=== PATIENT | female | born 1975 | race Caucasian/White ===

== ENCOUNTER 2016-11-03 20:36 | Inpatient (IN) | payer MEDICARE, OTHER ==
[2016-11-03] MEDS ORDERED: IPRATROPIUM-ALBUTEROL 3 ML NEB INHALATION STA (20:56)
[2016-11-03] MEDS ORDERED: SODIUM CHLORIDE 0.9% 1,000 ML IV STA (21:05)
[2016-11-03] MEDS: SODIUM CHLORIDE 0.9% 2,000 ML IV ONE (21:08)
--- NOTE | 2016-11-03 21:15 | ED ---
General Adult HPI - General Chief complaint: Chest Pain Stated complaint: vomiting x 5 days/Chest pain Time Seen by Provider: 11/03/16 20:50 Source: patient, family, RN notes reviewed Mode of arrival: wheelchair Limitations: no limitations - History of Present Illness Initial comments: This is a 41-year-old female who presents with complaints of nausea vomiting and diarrhea for the past 5 days. She states she's vomited multiple times with has not been able keep any food or fluids down. Additionally she's had sharp chest pain anteriorly for past 2 days she states that she radiated from her upper right thigh up and right flank and into her mid chest. It is severe at times. She also had a cough with yellow phlegm fevers chills and sweats. She does have a history of asthma she also is a smoker. She has a history of COPD and does use inhalers. She states she has been feeling lightheaded dizzy and generally weak. - Related Data Home Medications Medication Instructions Recorded Confirmed ALPRAZolam [Xanax] 1 mg PO DAILY PRN 11/03/16 11/03/16 Albuterol Inhaler [Ventolin Hfa 1 - 2 puff INHALATION RT-QID PRN 11/03/16 Inhaler] Morphine Sulfate Ir [Msir] 30 mg PO QAM 11/03/16 11/03/16 QUEtiapine FUMARATE [SEROquel] 300 mg PO HS 11/03/16 11/03/16 Allergies Allergy/AdvReac Type Severity Reaction Status Date / Time imipramine [From Tofranil] Allergy Rash/Hives Verified 11/03/16 20:43 Review of Systems ROS Statement: Those systems with pertinent positive or pertinent negative responses have been documented in the HPI. ROS Other: All systems not noted in ROS Statement are negative. Past Medical History Past Medical History: No Reported History History of Any Multi-Drug Resistant Organisms: MRSA Date of last positivie culture/infection: 03/2016 MDRO Source:: posterior right knee Past Surgical History: Orthopedic Surgery Additional Past Surgical History / Comment(s): Right knee surgery Past Psychological History: Depression Smoking Status: Current every day smoker Past Alcohol Use History: None Reported Past Drug Use History: None Reported General Exam - General Exam Comments Initial Comments: This is a well-developed well-nourished awake alert oriented 3 female Limitations: no limitations General appearance: alert, lethargic Head exam: Present: atraumatic, normocephalic, normal inspection Eye exam: Present: normal appearance, PERRL, EOMI. Absent: scleral icterus, conjunctival injection, periorbital swelling ENT exam: Present: mucous membranes dry Neck exam: Present: normal inspection. Absent: tenderness, meningismus, lymphadenopathy Respiratory exam: Present: wheezes, rhonchi, chest wall tenderness, decreased breath sounds. Absent: respiratory distress, rales, stridor Cardiovascular Exam: Present: normal rhythm, tachycardia, normal heart sounds. Absent: systolic murmur, diastolic murmur, rubs, gallop, clicks GI/Abdominal exam: Present: soft, normal bowel sounds. Absent: distended, tenderness, guarding, rebound, rigid Extremities exam: Present: normal inspection, full ROM, normal capillary refill. Absent: tenderness, pedal edema, joint swelling, calf tenderness Back exam: Present: normal inspection Neurological exam: Present: alert, oriented X3, CN II-XII intact Psychiatric exam: Present: normal affect, normal mood Skin exam: Present: warm, dry, intact, normal color. Absent: rash Course Vital Signs 11/03/16 11/03/16 11/03/16 20:39 21:04 21:15 Temperature 98.0 F 101.7 F H Pulse Rate 146 H 135 H Respiratory 22 18 Rate Blood Pressure 82/46 84/48 O2 Sat by Pulse 94 L 99 Oximetry 11/03/16 11/03/16 11/03/16 21:29 21:45 21:50 Temperature 101.7 F H Pulse Rate 116 H 113 H Respiratory 20 Rate Blood Pressure 90/62 O2 Sat by Pulse 97 Oximetry 11/03/16 11/03/16 22:00 22:01 Temperature 101.7 F H Pulse Rate 118 H 119 H Respiratory 22 Rate Blood Pressure 95/63 O2 Sat by Pulse 97 Oximetry - Reevaluation(s) Reevaluation #1: 11/03/16 21:54 Patient is feeling somewhat improved. 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 EKG Findings - EKG Results: EKG: interpreted by TAMI, sinus rhythm (Sinus tachycardia rate of 196407 QRS 70 daily since QTC of 394/[address] configuration inferior and anterolateral leads.) Medical Decision Making - Lab Data Result diagrams: 11/03/16 21:08 11/03/16 21:08 Lab Results 11/03/16 11/03/16 11/03/16 Range/Units 21:08 21:08 21:08 WBC 23.5 H (3.8-10.6) k/uL RBC 4.45 (3.80-5.40) m/uL Hgb 13.7 (11.4-16.0) gm/dL Hct 39.5 (34.0-46.0) % MCV 88.6 (80.0-100.0) fL MCH 30.9 (25.0-35.0) pg MCHC 34.8 (31.0-37.0) g/dL RDW 14.1 (11.5-15.5) % Plt Count 159 (150-450) k/uL Neutrophils % 96 % Lymphocytes % 2 % Monocytes % 1 % Eosinophils % 0 % Basophils % 0 % Neutrophils # 22.5 H (1.3-7.7) k/uL Lymphocytes # 0.4 L (1.0-4.8) k/uL Monocytes # 0.3 (0-1.0) k/uL Eosinophils # 0.1 (0-0.7) k/uL Basophils # 0.0 (0-0.2) k/uL PT (9.0-12.0) sec INR (<1.1) APTT (22.0-30.0) sec D-Dimer (<0.60) mg/L FEU Sodium 132 L (137-145) mmol/L Potassium 3.0 L* (3.5-5.1) mmol/L Chloride 101 (98-107) mmol/L Carbon Dioxide 18 L (22-30) mmol/L Anion Gap 13 mmol/L BUN 26 H (7-17) mg/dL Creatinine 1.60 H (0.52-1.04) mg/dL Est GFR (MDRD) Af Amer 43 (>60 ml/min/1.73 sqM) Est GFR (MDRD) Non-Af 35 (>60 ml/min/1.73 sqM) Glucose 176 H (74-99) mg/dL Plasma Lactic Acid Ananth 1.4 (0.7-2.0) mmol/L Calcium 8.2 L (8.4-10.2) mg/dL Magnesium 1.5 L (1.6-2.3) mg/dL Total Bilirubin 1.1 (0.2-1.3) mg/dL AST 32 (14-36) U/L ALT 43 (9-52) U/L Alkaline Phosphatase 136 H (38-126) U/L Total Protein 6.6 (6.3-8.2) g/dL Albumin 3.2 L (3.5-5.0) g/dL 11/03/16 Range/Units 21:08 WBC (3.8-10.6) k/uL RBC (3.80-5.40) m/uL Hgb (11.4-16.0) gm/dL Hct (34.0-46.0) % MCV (80.0-100.0) fL MCH (25.0-35.0) pg MCHC (31.0-37.0) g/dL RDW (11.5-15.5) % Plt Count (150-450) k/uL Neutrophils % % Lymphocytes % % Monocytes % % Eosinophils % % Basophils % % Neutrophils # (1.3-7.7) k/uL Lymphocytes # (1.0-4.8) k/uL Monocytes # (0-1.0) k/uL Eosinophils # (0-0.7) k/uL Basophils # (0-0.2) k/uL PT 11.8 (9.0-12.0) sec INR 1.2 (<1.1) APTT 30.3 H (22.0-30.0) sec D-Dimer 5.31 H (<0.60) mg/L FEU Sodium (137-145) mmol/L Potassium (3.5-5.1) mmol/L Chloride (98-107) mmol/L Carbon Dioxide (22-30) mmol/L Anion Gap mmol/L BUN (7-17) mg/dL Creatinine (0.52-1.04) mg/dL Est GFR (MDRD) Af Amer (>60 ml/min/1.73 sqM) Est GFR (MDRD) Non-Af (>60 ml/min/1.73 sqM) Glucose (74-99) mg/dL Plasma Lactic Acid Ananth (0.7-2.0) mmol/L Calcium (8.4-10.2) mg/dL Magnesium (1.6-2.3) mg/dL Total Bilirubin (0.2-1.3) mg/dL AST (14-36) U/L ALT (9-52) U/L Alkaline Phosphatase (38-126) U/L Total Protein (6.3-8.2) g/dL Albumin (3.5-5.0) g/dL - Radiology Data Radiology results: report reviewed (X-ray does show evidence of a left upper lobe infiltrate), image reviewed Critical Care Time Critical Care Time: Yes Critical Care Time: 33 minutes critical care time which includes initial presentation with history physical labs x-rays reevaluation patient several occasions. Discussion with the patient family regarding findings. Admission orders documentation of the above also discussed with the admitting physician. Disposition Clinical Impression: Left upper lobe pneumonia, COPD exacerbation, Febrile illness, acute, Renal insufficiency, Hypokalemia, Hypomagnesemia, Atypical chest pain Disposition: ADMITTED IP TO THIS [facility] Condition: Stable Referrals: Jamar Kemp DO [Primary Care Provider] - 1-2 days
[2016-11-03 21:24] LABS: Basophils % (A) 0 %; CH 31.1; CHCM 35.2; Eosinophils # (A) 0.1 k/uL (0-0.7); Eosinophils % (A) 0 %; HCT 39.5 % (34.0-46.0); HDW 2.78; HGB 13.7 gm/dL (11.4-16.0); Luc % (Auto) 1; Lymphocytes # (A) 0.4 k/uL (1.0-4.8); Lymphocytes % (A) 2 %; MCH 30.9 pg (25.0-35.0); MCHC 34.8 g/dL (31.0-37.0); MCV 88.6 fL (80.0-100.0); Mean Platelet Volume 8.5; Monocytes # (A) 0.3 k/uL (0-1.0); Monocytes % (A) 1 %; Neutrophils # (A) 22.5 k/uL (1.3-7.7); Neutrophils % (A) 96 %; RBC 4.45 m/uL (3.80-5.40); RDW 14.1 % (11.5-15.5); WBC 23.5 k/uL (3.8-10.6); WBC (Perox) 24.72
[2016-11-03 21:27] LABS: Calcium 8.2 mg/dL (8.4-10.2); Magnesium 1.5 mg/dL (1.6-2.3); Total Bilirubin 1.1 mg/dL (0.2-1.3); Total Protein 6.6 g/dL (6.3-8.2)
[2016-11-03] MEDS ORDERED: MAGNESIUM SULFATE-D5W PMX 1 GM in DEXTROSE/WATER 1 100ML.BAG IVPB ONE (21:31)
[2016-11-03] MEDS ORDERED: ACETAMINOPHEN TAB 500 MG TAB PO STA (21:32)
[2016-11-03 21:37] LABS: Creatine Kinase 209 U/L (30-135)
[2016-11-03 21:38] LABS: INR 1.2 (<1.1); Partial Thromboplastin Time 30.3 sec (22.0-30.0); Prothrombin Time 11.8 sec (9.0-12.0)
--- NOTE | 2016-11-03 21:39 | XR ---
EXAMINATION TYPE: XR chest 2V DATE OF EXAM: 11/03/2016 COMPARISON: 09/17/2013 HISTORY: Chest pain TECHNIQUE: Frontal and lateral views of the chest are obtained. FINDINGS: There is some nodular infiltrate in the anterior segment of the left upper lobe. The other lung garcia are clear. Heart and mediastinum are normal. There is no pleural effusion. Pulmonary vas cularity is normal. IMPRESSION: There is a 3 cm nodular left upper lobe infiltrate that is new compared to old exam and follow-up is recommended to show clearing.
[2016-11-03 21:50] LABS: Creatine Kinase MB 0.7 ng/mL (0.0-2.4); Troponin I <0.012 ng/mL (0.000-0.034)
[2016-11-03] MEDS ORDERED: methylPREDNISolone SOD SUCCI 125 MG/2 ML VIAL IV STA (21:58)
[2016-11-03] MEDS ORDERED: AZITHROMYCIN 500 MG in SODIUM CHLORIDE 0.9% 250 ML IVPB STA (21:59)
[2016-11-03] MEDS ORDERED: PNEUMONIA PROTOCOL UTILIZED 1 EACH MISC PO PRN (21:59)
[2016-11-03] MEDS: POTASSIUM CHLORIDE 20 MEQ, LIDOCAINE 2% INJ 20 MG in SODIUM CHLORIDE 0.9% 100 ML IVPB SCH (21:59)
[2016-11-03] MEDS ORDERED: HEPARIN SODIUM,PORCINE/D5W PMX 25,000 UNIT in DEXTROSE/WATER 1 500ML.BAG IV SCH (22:10)
[2016-11-03] MEDS ORDERED: HEPARIN SODIUM,PORCINE 5,000 UNIT/ML 1 ML VIAL IV PRN (22:10)
[2016-11-04] MEDS: methylPREDNISolone SOD SUCCI 125 MG/2 ML VIAL IV SCH ×3 (00:30→11:37)
--- NOTE | 2016-11-04 02:58 | US ---
EXAM: US Duplex Right Lower Extremity Veins CLINICAL HISTORY: Reason: Pain TECHNIQUE: Real-time ultrasound scan of the veins of the right lower extremity with color Doppler flow, spectral waveform analysis and compression. COMPARISON: No relevant prior studies available. FINDINGS: Deep veins: Unremarkable. No DVT in the visualized common femoral, femoral, proximal deep femoral or popliteal veins. The veins are compressible with normal color flow and augmentation. Superficial veins: Unremarkable. No thrombus in the visualized great saphenous vein. Soft tissues: No acute findings. No popliteal cyst. IMPRESSION: Normal right lower extremity duplex venous ultrasound.
[2016-11-04] MEDS: IPRATROPIUM-ALBUTEROL 3 ML NEB INHALATION SCH ×6 (03:47→20:04)
[2016-11-04 06:08] LABS: Basophils % (A) 0 %; CHCM 34.1; Eosinophils % (A) 0 %; HCT 37.6 % (34.0-46.0); HDW 2.81; HGB 13.1 gm/dL (11.4-16.0); Luc # (Auto) 0.17; Luc % (Auto) 1; Lymphocytes # (A) 0.5 k/uL (1.0-4.8); Lymphocytes % (A) 2 %; MCH 31.7 pg (25.0-35.0); MCHC 34.8 g/dL (31.0-37.0); MCV 91.1 fL (80.0-100.0); Mean Platelet Volume 8.4; Monocytes # (A) 0.3 k/uL (0-1.0); Monocytes % (A) 2 %; Neutrophils # (A) 20.6 k/uL (1.3-7.7); Neutrophils % (A) 95 %; RBC 4.12 m/uL (3.80-5.40); RDW 14.6 % (11.5-15.5); WBC 21.6 k/uL (3.8-10.6); WBC (Perox) 21.37
[2016-11-04] MEDS: SODIUM CHLORIDE 0.9% 1,000 ML IV SCH ×5 (06:39→23:33)
[2016-11-04 06:44] LABS: Appearance,Urine Cloudy (Clear); Bacteria,Urine Rare /hpf; Bilirubin,Urine Negative (Negative); Glucose,Urine (UA) Negative (Negative); Ketones,Urine Negative (Negative); Leukocyte Esterase,Urine Small (Negative); Mucus,Urine Rare /hpf; Nitrite,Urine Positive (Negative); PH, Urine 5.5 (5.0-8.0); Particle Count 7875; Protein,Urine Trace (Negative); RBC,Urine 1 /hpf (0-5); Specific Gravity,Urine 1.006 (1.001-1.035); Squamous Epithelial Cell,Urine 1 /hpf (0-4); UA Billing (MACRO vs. MICRO) MICRO; Urobilinogen,Urine <2.0 mg/dL (<2.0); WBC,Urine 7 /hpf (0-5)
[2016-11-04] MEDS: POTASSIUM CHLORIDE 20 MEQ, LIDOCAINE 2% INJ 20 MG in SODIUM CHLORIDE 0.9% 100 ML IVPB SCH (07:02)
[2016-11-04] MEDS: MORPHINE SULFATE IR 15 MG TABLET PO SCH (08:56)
--- NOTE | 2016-11-04 09:11 | NM ---
EXAMINATION TYPE: NM pul vent and perfuse DATE OF EXAM: 11/04/2016 COMPARISON: Chest x-ray from yesterday. HISTORY: Elevated d-dimer. TECHNIQUE: Utilizing inhalation of 71 mCi Tc 99m DTPA aerosol and intravenous injection of 5.26 mCi of Tc 99m MAA, ventilation and perfusion images are acquired post injection in multiple projections. FINDINGS: Normal radiotracer distribution is noted in the lungs. Some heterogeneity is present. There is no sudha dence of mismatched defects. Perhaps small matching defects are difficult to exclude. IMPRESSION: Low probability for pulmonary embolism
[2016-11-04 09:57] LABS: Anion Gap 11 mmol/L; Blood Urea Nitrogen 20 mg/dL (7-17); Carbon Dioxide 23 mmol/L (22-30); Chloride 106 mmol/L (98-107); Glucose 195 mg/dL (74-99); Non-African American GFR(MDRD) >60 (>60 ml/min/1.73 sqM); Potassium 3.4 mmol/L (3.5-5.1); Sodium 140 mmol/L (137-145)
[2016-11-04] MEDS ORDERED: IV VANCOMYCIN PER PHARMACY 1 EACH MISC MISCELLANE PRN (14:38)
[2016-11-04] MEDS ORDERED: VANCOMYCIN 1,250 MG in SODIUM CHLORIDE 0.9% 250 ML IVPB ONE (15:00)
[2016-11-04] MEDS: methylPREDNISolone SOD SUCCI 40 MG/ML 1 ML VIAL IV SCH ×2 (15:41→23:40)
[2016-11-04] MEDS ORDERED: Potassium Replacement Protocol 1 EACH MISC MISCELLANE PRN (15:52)
[2016-11-04] MEDS: POTASSIUM CHLORIDE ER 20 MEQ TAB.ER PO SCH ×4 (17:05→23:40)
--- NOTE | 2016-11-04 17:34 | P.HPIM ---
History of Present Illness H&P Date: 11/04/16 Chief Complaint: Generalized weakness This is a 40-year-old female with history of bipolar disorder ongoing tobacco use comes in the hospital with the 5 days worth of inability to tolerate any oral intake. Patient states that she has been having diffuse abdominal pain with the nausea vomiting and watery diarrhea Patient has also been having intermittent episodes of chills and fevers over the last 2 days. Patient states that she has been having increasing complaints of shortness of breath with yellowish sputum production with same period of time Patient denies having any recent travel history. No sick contacts reported Patient was having episodes of dizziness prior to admission Patient was seen in the emergency room was noted to have an acute kidney injury UA was concerning for urinary tract infection A chest x-ray that showed a right upper lobe air space disease Today patient states that she is feeling slightly better since admission Review of Systems All systems: negative (Noted in HPI) Past Medical History Past Medical History: No Reported History History of Any Multi-Drug Resistant Organisms: MRSA Date of last positivie culture/infection: 03/2016 (patient states culture done at [facility]) MDRO Source:: posterior right knee Past Surgical History: Orthopedic Surgery Additional Past Surgical History / Comment(s): Right knee surgery TUBES IN EARS D AND C IN 20'S Past Psychological History: Depression Smoking Status: Current every day smoker Medications and Allergies Home Medications Medication Instructions Recorded Confirmed Type ALPRAZolam [Xanax] 1 mg PO DAILY PRN 11/03/16 11/03/16 History Albuterol Inhaler [Ventolin Hfa 1 - 2 puff INHALATION RT-QID PRN 11/03/16 History Inhaler] Morphine Sulfate Ir [Msir] 30 mg PO QAM 11/03/16 11/03/16 History QUEtiapine FUMARATE [SEROquel] 300 mg PO HS 11/03/16 11/03/16 History Allergies Allergy/AdvReac Type Severity Reaction Status Date / Time imipramine [From Tofranil] Allergy Rash/Hives Verified 11/03/16 20:43 Physical Exam Vitals: Vital Signs Temp Pulse Pulse Pulse Resp BP BP 11/04/16 16:09 94 11/04/16 16:00 98.2 F 95 95 18 108/62 11/04/16 15:52 94 11/04/16 12:00 99.5 F 101 H 20 103/60 11/04/16 09:09 102 H 11/04/16 08:52 100 11/04/16 08:00 98.1 F 92 18 109/63 11/04/16 05:10 98 F 81 16 98/56 11/04/16 04:59 81 16 11/04/16 04:45 98 F 86 16 96/56 11/04/16 00:15 99.9 F H 111 H 16 91/55 11/03/16 22:56 100.7 F H 116 H 20 98/56 11/03/16 22:01 101.7 F H 119 H 22 95/63 11/03/16 22:00 118 H 11/03/16 21:59 11/03/16 21:50 113 H 11/03/16 21:45 116 H 20 90/62 11/03/16 21:29 101.7 F H 11/03/16 21:15 101.7 F H 11/03/16 21:04 135 H 18 84/48 11/03/16 20:39 98.0 F 146 H 22 82/46 Pulse Ox 11/04/16 16:09 11/04/16 16:00 95 11/04/16 15:52 95 11/04/16 12:00 95 11/04/16 09:09 11/04/16 08:52 11/04/16 08:00 100 11/04/16 05:10 97 11/04/16 04:59 11/04/16 04:45 97 11/04/16 00:15 96 11/03/16 22:56 94 L 11/03/16 22:01 97 11/03/16 22:00 11/03/16 21:59 97 11/03/16 21:50 11/03/16 21:45 97 11/03/16 21:29 11/03/16 21:15 11/03/16 21:04 99 11/03/16 20:39 94 L Intake and Output 11/04/16 11/04/16 11/04/16 06:59 14:59 22:59 Intake Total 1140 480 240 Output Total 1100 Balance 40 480 240 Intake: Intake, IV Titration 840 Amount Heparin Sodium,Porcine/ 140 D5w Pmx 25,000 unit In Dextrose/Water 1 500ml. bag @ 18 UNITS/KG/HR 21. 22 mls/hr IV .[id number] [facility] Rx#:[id number] Sodium Chloride 0.9% 1, 700 000 ml @ 150 mls/hr IV . Q6H40M [facility] Rx#:[id number] Oral 300 480 240 Output: Urine 1100 Other: Weight 58.9 kg Physical exam Gen. appearance oriented 3 in no distress Neck is supple no JVD Lungs good air entry clear to auscultation no rhonchi or wheezing Heart S1-S2 heard regular rate and rhythm no murmurs appreciated Abdomen is soft nontender no organomegaly bowel sounds are intact Neurologically cranial nerves II-12 grossly intact no focal motor or sensory deficits noted Skin no abnormalities appreciated Results CBC & Chem 7: 11/04/16 05:24 11/04/16 05:24 Labs: Abnormal Lab Results - Last 24 Hours (Table) 11/03/16 11/03/16 11/03/16 Range/Units 21:08 21:08 21:08 WBC 23.5 H (3.8-10.6) k/uL Neutrophils # 22.5 H (1.3-7.7) k/uL Lymphocytes # 0.4 L (1.0-4.8) k/uL APTT 30.3 H (22.0-30.0) sec D-Dimer 5.31 H (<0.60) mg/L FEU Sodium 132 L (137-145) mmol/L Potassium 3.0 L* (3.5-5.1) mmol/L Carbon Dioxide 18 L (22-30) mmol/L BUN 26 H (7-17) mg/dL Creatinine 1.60 H (0.52-1.04) mg/dL Glucose 176 H (74-99) mg/dL Calcium 8.2 L (8.4-10.2) mg/dL Magnesium 1.5 L (1.6-2.3) mg/dL Alkaline Phosphatase 136 H (38-126) U/L Total Creatine Kinase (30-135) U/L Albumin 3.2 L (3.5-5.0) g/dL Urine Appearance (Clear) Urine Protein (Negative) Urine Blood (Negative) Urine Nitrite (Negative) Ur Leukocyte Esterase (Negative) Urine WBC (0-5) /hpf Urine Bacteria (None) /hpf Urine Mucus (None) /hpf 07/09/17 07/10/17 07/10/17 Range/Units 21:08 05:20 05:24 WBC (3.8-10.6) k/uL Neutrophils # (1.3-7.7) k/uL Lymphocytes # (1.0-4.8) k/uL APTT 36.4 H (22.0-30.0) sec D-Dimer (<0.60) mg/L FEU Sodium (137-145) mmol/L Potassium (3.5-5.1) mmol/L Carbon Dioxide (22-30) mmol/L BUN (7-17) mg/dL Creatinine (0.52-1.04) mg/dL Glucose (74-99) mg/dL Calcium (8.4-10.2) mg/dL Magnesium (1.6-2.3) mg/dL Alkaline Phosphatase (38-126) U/L Total Creatine Kinase 209 H (30-135) U/L Albumin (3.5-5.0) g/dL Urine Appearance Cloudy H (Clear) Urine Protein Trace H (Negative) Urine Blood Trace H (Negative) Urine Nitrite Positive H (Negative) Ur Leukocyte Esterase Small H (Negative) Urine WBC 7 H (0-5) /hpf Urine Bacteria Rare H (None) /hpf Urine Mucus Rare H (None) /hpf 11/04/16 11/04/16 11/04/16 Range/Units 05:24 05:24 05:24 WBC 21.6 H (3.8-10.6) k/uL Neutrophils # 20.6 H (1.3-7.7) k/uL Lymphocytes # 0.5 L (1.0-4.8) k/uL APTT (22.0-30.0) sec D-Dimer (<0.60) mg/L FEU Sodium (137-145) mmol/L Potassium 3.4 L (3.5-5.1) mmol/L Carbon Dioxide (22-30) mmol/L BUN 20 H (7-17) mg/dL Creatinine (0.52-1.04) mg/dL Glucose 195 H (74-99) mg/dL Calcium 8.0 L (8.4-10.2) mg/dL Magnesium 2.4 H (1.6-2.3) mg/dL Alkaline Phosphatase (38-126) U/L Total Creatine Kinase (30-135) U/L Albumin (3.5-5.0) g/dL Urine Appearance (Clear) Urine Protein (Negative) Urine Blood (Negative) Urine Nitrite (Negative) Ur Leukocyte Esterase (Negative) Urine WBC (0-5) /hpf Urine Bacteria (None) /hpf Urine Mucus (None) /hpf Microbiology - Last 24 Hours (Table) 11/03/16 21:08 Blood Culture Gram Stain - Preliminary Blood 11/03/16 21:08 Blood Culture - Final Blood 11/04/16 05:20 Urine Culture - Preliminary Urine,Clean Catch Thrombosis Risk Factor Assmnt - Choose All That Apply Any of the Below Risk Factors Present?: No Each Factor Represents 1 point: Age 41-60 years Other Risk Factors: No Other congenital or acquired thrombophilia - If yes, enter type in comment: No Thrombosis Risk Factor Assessment Total Risk Factor Score: 1 Thrombosis Risk Factor Assessment Level: Very Low Risk Assessment and Plan Plan: #1 sepsis likely secondary to community-acquired pneumonia #2 acute kidney injury secondary to dehydration #3 bipolar disorder #4 ongoing tobacco use #5 bacteremia with gram-positive bacteria likely source being a pneumonic process. Plan We'll discontinue IV heparin Patient was noted to have an elevated d-dimer however has a pneumonic process is currently on room air. Titrate down steroid use We'll add vancomycin until cultures and susceptibilities are back We'll obtain a C. diff toxin is negative patient was started on loperamide DVT prophylaxis
[2016-11-04] MEDS: QUEtiapine 100 MG TAB PO SCH (21:15)
[2016-11-04] MEDS: AZITHROMYCIN 500 MG TAB PO SCH (21:15)
[2016-11-04] MEDS: traMADol 50 MG TAB PO PRN (21:15)
[2016-11-04 21:23] LABS: Glucose,Whole Blood 234 mg/dL (75-99)
[2016-11-04] MEDS: INSULIN LISPRO (humaLOG) 300 UNIT/3 ML VIAL SQ SCH (21:24)
[2016-11-04 22:27] LABS: Hemoglobin A1C 5.6 % (4.2-6.1)
[2016-11-05 03:34] LABS: Basophils % (A) 0 %; CHCM 35.3; Eosinophils # (A) 0.1 k/uL (0-0.7); Eosinophils % (A) 0 %; HDW 3.02; HGB 10.7 gm/dL (11.4-16.0); Luc # (Auto) 0.23; Luc % (Auto) 1; Lymphocytes # (A) 0.7 k/uL (1.0-4.8); Lymphocytes % (A) 4 %; MCH 31.3 pg (25.0-35.0); MCHC 35.5 g/dL (31.0-37.0); MCV 88.1 fL (80.0-100.0); Mean Platelet Volume 9.4; Monocytes # (A) 0.4 k/uL (0-1.0); Monocytes % (A) 2 %; Neutrophils # (A) 17.9 k/uL (1.3-7.7); Neutrophils % (A) 93 %; RBC 3.41 m/uL (3.80-5.40); RDW 14.6 % (11.5-15.5); WBC 19.4 k/uL (3.8-10.6); WBC (Perox) 20.27
[2016-11-05 04:17] LABS: ALT 83 U/L (9-52); AST 89 U/L (14-36); Alkaline Phosphatase 126 U/L (38-126); Anion Gap 8 mmol/L; Blood Urea Nitrogen 14 mg/dL (7-17); Calcium 8.3 mg/dL (8.4-10.2); Carbon Dioxide 19 mmol/L (22-30); Chloride 117 mmol/L (98-107); Glucose 138 mg/dL (74-99); Non-African American GFR(MDRD) >60 (>60 ml/min/1.73 sqM); Potassium 4.2 mmol/L (3.5-5.1); Sodium 144 mmol/L (137-145); Total Bilirubin 0.5 mg/dL (0.2-1.3); Total Protein 5.3 g/dL (6.3-8.2)
[2016-11-05] MEDS: SODIUM CHLORIDE 0.9% 1,000 ML IV SCH ×3 (04:57→22:37)
[2016-11-05 06:19] LABS: Glucose,Whole Blood 145 mg/dL (75-99)
[2016-11-05] MEDS: traMADol 50 MG TAB PO PRN ×2 (06:30→14:51)
[2016-11-05] MEDS: INSULIN LISPRO (humaLOG) 300 UNIT/3 ML VIAL SQ SCH ×4 (06:30→21:16)
[2016-11-05] MEDS: IPRATROPIUM-ALBUTEROL 3 ML NEB INHALATION SCH ×4 (06:54→21:46)
[2016-11-05] MEDS ORDERED: VANCOMYCIN 1,000 MG in SODIUM CHLORIDE 0.9% 250 ML IVPB SCH (08:00)
[2016-11-05] MEDS: methylPREDNISolone SOD SUCCI 40 MG/ML 1 ML VIAL IV SCH ×2 (08:37→17:17)
[2016-11-05] MEDS: ENOXAPARIN 40 MG/0.4 ML SYRINGE SQ SCH (08:38)
[2016-11-05] MEDS: MORPHINE SULFATE IR 15 MG TABLET PO SCH (08:42)
--- NOTE | 2016-11-05 08:58 | XR ---
EXAMINATION TYPE: XR chest 1V portable DATE OF EXAM: 11/05/2016 Comparison: 11/03/2016 Clinical History: 40-year-old female pneumonia, MAY Findings: Heart is normal size. Aorta and pulmonary vasculature within normal limits. There is some volume loss at the right base with trace effusion and patchy opacity, new from 11/03/2016. There may be additional patchy infiltrate at the left midlung. Impression: Prominent new atelectasis and infiltrate at the right base with possible trace effusion. Additional i nfiltrate at the left mid lung.
[2016-11-05 12:37] LABS: Glucose,Whole Blood 249 mg/dL (75-99)
--- NOTE | 2016-11-05 15:31 | XR ---
EXAMINATION TYPE: XR Hip Complete RT DATE OF EXAM: 11/05/2016 COMPARISON: NONE HISTORY: 40-year-old female upper leg pain TECHNIQUE: 2 views FINDINGS: No acute fracture, subluxation, or dislocation. Hip joint space appears maintained. There is a 5 mm calcific density above the greater trochanter. Questionable clinical significance. IMPRESSION: 1. No acute osseous abnormality seen. 2. A 5 mm density above the greater trochanter of questionable clinical significance. In the appropri ate clinical setting, calcific tendinitis of the gluteal insertion is possible.
--- NOTE | 2016-11-05 16:28 | P.PN ---
Subjective This is a 40-year-old female with history of bipolar disorder ongoing tobacco use comes in the hospital with the 5 days worth of inability to tolerate any oral intake. Patient states that she has been having diffuse abdominal pain with the nausea vomiting and watery diarrhea Patient has also been having intermittent episodes of chills and fevers over the last 2 days. Patient states that she has been having increasing complaints of shortness of breath with yellowish sputum production with same period of time Patient denies having any recent travel history. No sick contacts reported Patient was having episodes of dizziness prior to admission Patient was seen in the emergency room was noted to have an acute kidney injury UA was concerning for urinary tract infection A chest x-ray that showed a right upper lobe air space disease Today patient states that she is feeling slightly better since admission 11/05/2016 States to have significant tenderness in the right hip radiating to her groin States her cough is significantly better no fevers chills chest pain abdominal pain urinary urgency or frequency or diarrhea is reported Objective - Vital Signs Vital signs: Vital Signs Temp 97.6 F 11/05/16 15:00 Pulse 85 11/05/16 15:00 Resp 20 11/05/16 15:00 BP 93/54 11/05/16 15:00 Pulse Ox 95 11/05/16 15:00 Intake & Output 11/04/16 11/05/16 11/05/16 18:59 06:59 18:59 Intake Total 720 1500 1020 Output Total 200 Balance 720 1500 820 Weight 59.5 kg Intake: IV 1500 Sodium Chloride 0.9% 1, 1500 000 ml @ 150 mls/hr IV . Q6H40M [facility] Rx#:[id number] Oral 720 1020 Output: Urine 200 Other: Voiding Method Toilet Toilet # Voids 1 2 # Bowel Movements 1 - Exam Physical exam Gen. appearance oriented 3 in no distress Neck is supple no JVD Lungs good air entry clear to auscultation no rhonchi or wheezing Heart S1-S2 heard regular rate and rhythm no murmurs appreciated Abdomen is soft nontender no organomegaly bowel sounds are intact Neurologically cranial nerves II-12 grossly intact no focal motor or sensory deficits noted Skin no abnormalities appreciated Musculoskeletal right hip tenderness on palpation anteriorly in the groin range of motion appears to exacerbate tenderness especially with abduction - Labs CBC & Chem 7: 11/05/16 03:14 11/05/16 03:14 Labs: Abnormal Lab Results - Last 24 Hours (Table) 11/04/16 11/04/16 11/05/16 Range/Units 19:58 21:19 03:14 WBC 19.4 H (3.8-10.6) k/uL RBC 3.41 L (3.80-5.40) m/uL Hgb 10.7 L (11.4-16.0) gm/dL Hct 30.0 L (34.0-46.0) % Plt Count 126 L (150-450) k/uL Neutrophils # 17.9 H (1.3-7.7) k/uL Lymphocytes # 0.7 L (1.0-4.8) k/uL Potassium 3.2 L (3.5-5.1) mmol/L Chloride (98-107) mmol/L Carbon Dioxide (22-30) mmol/L Glucose (74-99) mg/dL POC Glucose (mg/dL) 234 H (75-99) mg/dL Calcium (8.4-10.2) mg/dL AST (14-36) U/L ALT (9-52) U/L Total Protein (6.3-8.2) g/dL Albumin (3.5-5.0) g/dL 11/05/16 11/05/16 11/05/16 Range/Units 03:14 06:00 12:21 WBC (3.8-10.6) k/uL RBC (3.80-5.40) m/uL Hgb (11.4-16.0) gm/dL Hct (34.0-46.0) % Plt Count (150-450) k/uL Neutrophils # (1.3-7.7) k/uL Lymphocytes # (1.0-4.8) k/uL Potassium (3.5-5.1) mmol/L Chloride 117 H (98-107) mmol/L Carbon Dioxide 19 L (22-30) mmol/L Glucose 138 H (74-99) mg/dL POC Glucose (mg/dL) 145 H 249 H (75-99) mg/dL Calcium 8.3 L (8.4-10.2) mg/dL AST 89 H (14-36) U/L ALT 83 H (9-52) U/L Total Protein 5.3 L (6.3-8.2) g/dL Albumin 2.4 L (3.5-5.0) g/dL Microbiology - Last 24 Hours (Table) 11/04/16 05:20 Urine Culture - Final Urine,Clean Catch 11/03/16 21:08 Blood Culture Gram Stain - Preliminary Blood Blood Culture - Preliminary Presumptive Staph aureus 11/03/16 21:08 Blood Culture - Final Blood Assessment and Plan Plan: #1 sepsis likely secondary to community-acquired pneumonia #2 acute kidney injury secondary to dehydration #3 bipolar disorder #4 ongoing tobacco use #5 bacteremia with gram-positive bacteria likely source being a pneumonic process. Plan We'll discontinue IV heparin Await final blood cultures Obtain radiologic imaging of the right hip We'll add vancomycin until cultures and susceptibilities are back We'll obtain a C. diff toxin is negative patient was started on loperamide DVT prophylaxis
[2016-11-05] MEDS: KETOROLAC 30 MG/ML 1 ML VIAL IVP SCH (16:37)
[2016-11-05 17:01] LABS: Glucose,Whole Blood 130 mg/dL (75-99)
--- NOTE | 2016-11-05 19:58 | MR ---
MR right hip HISTORY: Muscle injury, right hip pain Multiplanar multisequence imaging obtained through the pelvis with small fatye-he-dcsd images obtaine d through the right hip Correlation to plain film same date There is somewhat diffuse increased signal involving the musculature about the right hip and proximal thigh, hip flexors. Within the iliac fossa on the right significant fluid signal is present, difficu lt to exclude abscess, there is some displacement of the psoas muscle anteriorly and medially. Subcut aneous fat also shows increased T2 signal especially in the anterior aspect of the right thigh. Fluid signal also present along the fascia of the proximal lower extremities bilaterally and gluteal regio ns. Bone marrow signal is maintained. No significant joint effusion, physiologic fluid thought presen t within both hips. Articular cartilage signal is maintained, there is no evident fracture or disloca tion. Nabothian cysts are present in the cervix. Follicles associated with the ovaries. IMPRESSION: Correlate for possible bacterial myositis, contrast-enhanced exam may be of benefit.
[2016-11-05] MEDS: QUEtiapine 100 MG TAB PO SCH (20:26)
[2016-11-05] MEDS: AZITHROMYCIN 500 MG TAB PO SCH (20:26)
[2016-11-05 20:51] LABS: Glucose,Whole Blood 146 mg/dL (75-99)
[2016-11-05] MEDS: VANCOMYCIN 1,000 MG in SODIUM CHLORIDE 0.9% 250 ML IVPB SCH (21:13)
[2016-11-06] MEDS: KETOROLAC 30 MG/ML 1 ML VIAL IVP SCH ×4 (00:04→23:26)
[2016-11-06] MEDS: methylPREDNISolone SOD SUCCI 40 MG/ML 1 ML VIAL IV SCH ×4 (00:04→23:26)
[2016-11-06] MEDS: SODIUM CHLORIDE 0.9% 1,000 ML IV SCH ×4 (05:48→23:38)
[2016-11-06 07:35] LABS: Glucose,Whole Blood 127 mg/dL (75-99)
[2016-11-06] MEDS: INSULIN LISPRO (humaLOG) 300 UNIT/3 ML VIAL SQ SCH ×4 (07:37→21:48)
[2016-11-06] MEDS: traMADol 50 MG TAB PO PRN (08:09)
[2016-11-06] MEDS: MORPHINE SULFATE IR 15 MG TABLET PO SCH (08:11)
[2016-11-06] MEDS: ENOXAPARIN 40 MG/0.4 ML SYRINGE SQ SCH (08:11)
[2016-11-06] MEDS: IPRATROPIUM-ALBUTEROL 3 ML NEB INHALATION SCH ×4 (09:08→19:55)
[2016-11-06] MEDS: VANCOMYCIN 1,000 MG in SODIUM CHLORIDE 0.9% 250 ML IVPB SCH (09:10)
[2016-11-06] MEDS: ceFAZolin 2 GM in SODIUM CHLORIDE 0.9% 100 ML IVPB SCH ×3 (11:10→23:38)
[2016-11-06] MEDS ORDERED: PHYTONADIONE ORAL 5 MG/5 ML ORAL.SYRG PO STA (12:11)
[2016-11-06 12:20] LABS: Glucose,Whole Blood 131 mg/dL (75-99)
--- NOTE | 2016-11-06 13:56 | CT ---
EXAMINATION TYPE: CT chest wo con DATE OF EXAM: 11/06/2016 COMPARISON: NONE HISTORY: Pneumonia CT DLP: 210.9 mGycm. Automated Exposure Control for Dose Reduction was Utilized. TECHNIQUE: CT scan of the thorax is performed without IV contrast. FINDINGS: LUNGS: There are paraseptal emphysematous changes. There is a pulmonary nodule in the posterior henry n of the left upper lobe measuring 6 mm. Ill-defined groundglass changes in the left apex are seen. A dditional 3 mm pulmonary nodule right upper lobe axial image 24. Within the right upper lobe there is a 2.8 cm poorly defined mass. Left upper lobe demonstrate a mustapha lar lesion with internal air measuring 2.4 cm. Additional air-containing lesion measuring 1.4 cm in t he right upper lobe on axial image 35. Additional areas of nodularity are seen as well as bilateral s mall effusions and areas of consolidation noted bilaterally with a nodule at the left lung base measu ring 1 cm.. The heart is enlarged. Hypertrophic and degenerative change of the spine noted. Scoliotic curvature n oted IMPRESSION: 1. Bilateral pulmonary masses some of which contain internal air raising the possibility of cavitatin g lesions or pneumonia. There are additional smaller pulmonary nodules. Neoplasm also in the differen tial diagnosis. Follow to resolution post therapy recommended. 2. Bilateral pleural effusion and basilar infiltrate 3. Emphysematous changes predominantly paraseptal.
--- NOTE | 2016-11-06 16:26 | P.PN ---
Subjective This is a 40-year-old female with history of bipolar disorder ongoing tobacco use comes in the hospital with the 5 days worth of inability to tolerate any oral intake. Patient states that she has been having diffuse abdominal pain with the nausea vomiting and watery diarrhea Patient has also been having intermittent episodes of chills and fevers over the last 2 days. Patient states that she has been having increasing complaints of shortness of breath with yellowish sputum production with same period of time Patient denies having any recent travel history. No sick contacts reported Patient was having episodes of dizziness prior to admission Patient was seen in the emergency room was noted to have an acute kidney injury UA was concerning for urinary tract infection A chest x-ray that showed a right upper lobe air space disease Today patient states that she is feeling slightly better since admission 11/05/2016 States to have significant tenderness in the right hip radiating to her groin States her cough is significantly better no fevers chills chest pain abdominal pain urinary urgency or frequency or diarrhea is reported 11/06/2016 Blood cultures are positive for staph aureus MSSA Denies having any fevers chills nausea vomiting difficulty breathing cough patient's pain in the right lower extremity is improved Objective - Vital Signs Vital signs: Vital Signs Temp 97.5 F L 11/06/16 14:55 Pulse 95 11/06/16 16:00 Resp 18 11/06/16 16:00 BP 115/60 11/06/16 14:55 Pulse Ox 98 11/06/16 14:55 Intake & Output 11/05/16 11/06/16 11/06/16 18:59 06:59 18:59 Intake Total 1138 2200 Output Total 200 Balance 938 2200 Weight 68 kg 68 kg Intake: IV 1350 Sodium Chloride 0.9% 1, 1350 000 ml @ 150 mls/hr IV . Q6H40M TRIP Rx#:[id number] Intake, IV Titration 350 Amount Vancomycin 1,000 mg In 250 Sodium Chloride 0.9% 250 ml @ 125 mls/hr IVPB Q12HR TRIP Rx#:[id number] cefTRIAXone 1,000 mg In 100 Sodium Chloride 0.9% 50 ml @ 100 mls/hr IVPB Q24H TRIP Rx#:[id number] Oral 1138 500 Output: Urine 200 Other: Voiding Method Toilet Toilet Toilet # Voids 2 1 3 # Bowel Movements 1 0 - Exam Physical exam Gen. appearance oriented 3 in no distress Neck is supple no JVD Lungs good air entry clear to auscultation no rhonchi or wheezing Heart S1-S2 heard regular rate and rhythm no murmurs appreciated Abdomen is soft nontender no organomegaly bowel sounds are intact Neurologically cranial nerves II-12 grossly intact no focal motor or sensory deficits noted Skin no abnormalities appreciated - Labs CBC & Chem 7: 11/05/16 03:14 11/05/16 03:14 Labs: Abnormal Lab Results - Last 24 Hours (Table) 11/05/16 11/05/16 11/06/16 Range/Units 16:47 20:45 07:19 POC Glucose (mg/dL) 130 H 146 H 127 H (75-99) mg/dL 11/06/16 Range/Units 12:03 POC Glucose (mg/dL) 131 H (75-99) mg/dL Microbiology - Last 24 Hours (Table) 11/05/16 13:35 Blood Culture Gram Stain - Preliminary Blood 11/05/16 13:35 Blood Culture - Final Blood 11/03/16 21:08 Blood Culture Gram Stain - Final Blood Blood Culture - Final Staphylococcus aureus Assessment and Plan Plan: #1 sepsis likely secondary to community-acquired pneumonia #2 acute kidney injury secondary to dehydration #3 bipolar disorder #4 ongoing tobacco use #5 bacteremia with gram-positive bacteria likely source being a pneumonic process. Plan Patient was noted to have cavitary pneumonia Workup to rule out endocarditis Continue with IV antibiotic therapy Patient is clinically stable In regards to the bacterial myositis as a differential clinically significantly improved and is unlikely it's an abscess Continue ongoing care case was discussed with the infectious disease physician
[2016-11-06 17:47] LABS: Glucose,Whole Blood 130 mg/dL (75-99)
[2016-11-06] MEDS ORDERED: VANCOMYCIN TROUGH DUE 1 EACH MISC MISCELLANE ONE (20:00)
[2016-11-06] MEDS: QUEtiapine 100 MG TAB PO SCH (20:33)
[2016-11-06 21:00] LABS: Glucose,Whole Blood 166 mg/dL (75-99)
[2016-11-06 23:44] LABS: Glucose,Whole Blood 165 mg/dL (75-99)
[2016-11-07] MEDS: SODIUM CHLORIDE 0.9% 1,000 ML IV SCH ×3 (05:09→12:51)
--- NOTE | 2016-11-07 06:28 | CONS ---
DATE OF SERVICE: 11/06/2016 REASON FOR CONSULTATION: Bacteremia. HISTORY OF PRESENT ILLNESS: The patient is a 40-year-old female who presented to the ER at [facility] on 11/03/2016 with chief complaints of nausea, vomiting and diarrhea, unable to keep anything down for the two days prior to presentation to the hospital. The patient also complaining of sharp chest pain anteriorly for the same duration. Patient apparently was complaining of pain in the right upper thigh area, right flank and into the mid-chest area. The patient's additional symptoms including a cough, productive with some yellow sputum, but no hemoptysis. The patient does have a history of IV drug use and she usually injects in her upper thigh area, but has not injected in almost three months according to the patient. Subsequently, the patient was evaluated by the ER physician. The patient did have chest x-ray that did show left upper lobe nodule. Patient did have a fever of 101.7 degrees Fahrenheit on 11/03. The patient did get the diagnosis of pneumonia. She was started on Rocephin and Zithromax. The blood culture that was obtained in the ER did come back positive with Gram positive cocci, hence, vancomycin was added. With the patient's persistent pain in the right upper thigh area, a MRI of the hip was done which was suspicious for possible myositis on the right side. These images have been reviewed personally with Dr. Lehman and myself. With all these symptoms , ID was consulted for further recommendations regarding antibiotic therapy and possible discharge antibiotics. Patient at the time of my evaluation this morning has been afebrile. She is breathing comfortably. Coughing No chest pain. No abdominal pain. No further nausea, vomiting or any diarrhea. REVIEW OF SYSTEMS: CONSTITUTIONAL: Positive for weakness and fever. EYES: No complaint. ENT: No complaint. RESPIRATORY: As per HPI. CARDIOVASCULAR: No complaint. GENITOURINARY: No complaint. GASTROINTESTINAL: As per HPI. MUSCULOSKELETAL: As per HPI. INTEGUMENTARY: No complaint. PSYCHOLOGICAL: No complaint. ENDOCRINE: No complaint. NEUROLOGICAL: No complaint. PAST MEDICAL HISTORY: Significant for previous history of MRSA infection in right knee. History of depression and smoker. Also history of IV drug use. PAST SURGICAL HISTORY: Right knee arthroscopy. SOCIAL HISTORY: Patient is a current every day smoker. Did have history of IV drug use. Last use was about 3 months ago. FAMILY HISTORY: No pertinent findings were noticed. ALLERGIES: IMIPRAMINE. Medications currently include the patient is on Tylenol, DuoNeb, Xanax, Rocephin , Zithromax, vancomycin, Pharmacy to dose. She is on Solu-Medrol, Seroquel, Ultram. On examination, blood pressure is 115/60 with pulse of 57. Temperature is 97.5. She is 98% on room air. General description is a middle aged female lying in bed in no distress. No tachypnea or accessory muscles of respiration use. HEENT examination shows slight pallor. No scleral icterus. Oral mucous membrane is moist. NECK: Trachea central. No thyromegaly. LUNGS: Unlabored breathing. Clear to auscultation anteriorly. No wheeze or crackles. HEART: S1, S2 regular rate and rhythm. No loud murmur. ABDOMEN: Soft, no tenderness. No guarding, no rigidity. EXTREMITIES: No edema feet. Examination right thigh area, some tenderness to palpation, but no mass was noticed or any skin tract suggestive of injection in the right upper thigh area. SKIN: No rashes or masses palpable. NEUROLOGICAL: Patient is awake, alert, and oriented x3. Mood and affect normal. LABS: Hemoglobin is 12.7, white count 19.4, admission white count was 23.5. BUN 14, creatinine of 0.60. Electrolytes have been normal. Liver enzymes slightly elevated. Blood cultures from 11/03 are MSSA; 11/05 also positive. DIAGNOSTIC IMPRESSION: Patient with MSSA bacteremia in patient who does have a history of IV drug use though categorically denies using any drugs in the last three months. The patient mostly with systemic symptoms and was septic on presentation with fever and elevated white count and tachycardia. Now with evidence of myositis in the right thigh area and cavitary lesion in the lung, suspicion high for infective endocarditis with septic emboli. PLAN: 1. Would repeat blood cultures x1 to make sure the patient does have clearance of her bacteremia. 2. The patient will need an echocardiogram which if negative will request a CALLIE. 3. Discontinue Rocephin, Zithromax and vancomycin. 4. We will start the patient on Cefazolin 2 grams q.8h. 5. We will follow up on clinical condition and cultures to further adjust medications if needed. Thank you for this consultation. I will follow this patient along with you. Plan of care was discussed in detail with the attending physician. HUSSAIN
[2016-11-07 07:12] LABS: Glucose,Whole Blood 121 mg/dL (75-99)
[2016-11-07] MEDS: IPRATROPIUM-ALBUTEROL 3 ML NEB INHALATION SCH ×4 (07:23→20:17)
[2016-11-07] MEDS: INSULIN LISPRO (humaLOG) 300 UNIT/3 ML VIAL SQ SCH (07:48)
[2016-11-07 08:58] LABS: Basophils % (A) 0 %; CH 30.5; Eosinophils # (A) 0.1 k/uL (0-0.7); Eosinophils % (A) 1 %; HCT 32.4 % (34.0-46.0); HDW 3.18; Luc # (Auto) 0.18; Luc % (Auto) 2; Lymphocytes # (A) 0.7 k/uL (1.0-4.8); Lymphocytes % (A) 6 %; MCH 30.6 pg (25.0-35.0); MCHC 33.9 g/dL (31.0-37.0); MCV 90.4 fL (80.0-100.0); Mean Platelet Volume 9.1; Monocytes # (A) 0.2 k/uL (0-1.0); Monocytes % (A) 2 %; Neutrophils # (A) 10.8 k/uL (1.3-7.7); Neutrophils % (A) 90 %; RBC 3.59 m/uL (3.80-5.40); RDW 14.9 % (11.5-15.5); WBC 12.1 k/uL (3.8-10.6); WBC (Perox) 12.35
[2016-11-07] MEDS ORDERED: LIDOCAINE 2% INJ 20 MG/ML SQ ONE (09:28)
[2016-11-07 09:35] LABS: ALT 82 U/L (9-52); AST 47 U/L (14-36); Alkaline Phosphatase 109 U/L (38-126); Anion Gap 10 mmol/L; Blood Urea Nitrogen 36 mg/dL (7-17); Calcium 8.5 mg/dL (8.4-10.2); Carbon Dioxide 18 mmol/L (22-30); Chloride 115 mmol/L (98-107); Glucose 170 mg/dL (74-99); Non-African American GFR(MDRD) >60 (>60 ml/min/1.73 sqM); Potassium 3.7 mmol/L (3.5-5.1); Sodium 143 mmol/L (137-145); Total Bilirubin 0.3 mg/dL (0.2-1.3); Total Protein 5.5 g/dL (6.3-8.2)
--- NOTE | 2016-11-07 09:50 | IR ---
PICC LINE PLACEMENT: HISTORY: Infection requiring long-term antibiotic therapy PROCEDURE: Ultrasound and fluoroscopic guidance of PICC line placement. COMPLICATIONS: None ANESTHESIA: 1. 1% Lidocaine locally. FINDINGS/TECHNIQUE: The procedure was explained to the patient. The risks, complications, benefits and alternatives were discussed and any questions were answered. Informed consent was obtained. The patient was placed supine on the fluoroscopic table and prepped and draped in the usual sterile fash ion. Utilizing a 21 gauge needle and sonographic and fluoroscopic guidance, access in the left basi lic vein was achieved and there is placement of a 0.018 guidewire. The vein is patent. A 4-F sheath was placed over the guidewire. The guidewire and dilator were removed and a 4-F. PICC line was plac ed through the sheath with the tip at the level of the SVC. The sheath was removed, the catheter was flushed and sutured into position. The patient was stable throughout the procedure and remained sta ble upon discharge from the Department of Radiology. The vein puncture was patent under ultrasound. A hendrix scale image was obtained to document patency of the vein punctured. All elements of the maximal barrier technique were utilized. FLUOROSCOPY TIME: 0.1 minute IMPRESSION: Successful PICC line placement under ultrasound and fluoroscopic guidance.
[2016-11-07] MEDS: MORPHINE SULFATE IR 15 MG TABLET PO SCH (10:06)
[2016-11-07] MEDS: ceFAZolin 2 GM in SODIUM CHLORIDE 0.9% 100 ML IVPB SCH ×3 (10:06→23:00)
[2016-11-07] MEDS: KETOROLAC 30 MG/ML 1 ML VIAL IVP SCH ×3 (10:07→22:59)
[2016-11-07] MEDS: methylPREDNISolone SOD SUCCI 40 MG/ML 1 ML VIAL IV SCH (10:07)
--- NOTE | 2016-11-07 11:14 | ECHOF ---
Referral Reason:MSSA Bacteremia, cavitatory lung lesion ?endocardi MEASUREMENTS -------- HEIGHT: 162.6 cm WEIGHT: 67.6 kg BP: 112/66 RVIDd: 2.7 cm (< 3.3) IVSd: 1.0 cm (0.6 - 1.1) LVIDd: 4.4 cm (3.9 - 5.3) LVPWd: 1.0 cm (0.6 - 1.1) IVSs: 1.3 cm LVIDs: 2.8 cm LVPWs: 1.3 cm LAESV Index (A-L): 39.22 ml/m Ao Diam: 2.4 cm (2.0 - 3.7) AV Cusp: 1.6 cm (1.5 - 2.6) LA Diam: 4.1 cm (2.7 - 3.8) MV EXCURSION: 16.074 mm (> 18.000) MV EF SLOPE: 167 mm/s (70 - 150) EPSS: 0.6 cm MV E Jh: 1.25 m/s MV DecT: 214 ms MV A Jh: 0.69 m/s MV E/A Ratio: 1.82 RAP: 5.00 mmHg RVSP: 31.22 mmHg FINDINGS -------- Sinus rhythm. Resting bradycardia (HR<60bpm). This was a technically good study. Left ventricular wall thickness is normal. Overall left ventricular systolic function is normal with, an EF between 55 - 60 %. The right ventricle is normal in size and function. LA is midly dilated 29-33ml/m2. The right atrium is normal in size. The aortic valve is trileaflet, and appears structurally normal. No aortic stenosis or regurgitation. The mitral valve is normal. There is trace to mild mitral regurgitation. Trace tricuspid regurgitation present. There is no evidence of pulmonary hypertension. The right ventricular systolic pressure, as measured by Doppler, is 31.22mmHg. Trace/mild (physiologic) pulmonic regurgitation. The aortic root size is normal. Normal inferior vena cava with normal inspiratory collapse consistent with estimated right atrial pressure of 5 mmHg. There is no pericardial effusion. CONCLUSIONS -------- 1. Sinus rhythm. 2. Trace/mild (physiologic) pulmonic regurgitation. 3. The aortic root size is normal. 4. There is no pericardial effusion. 5. Resting bradycardia (HR<60bpm). 6. This was a technically good study. 7. Left ventricular wall thickness is normal. 8. Overall left ventricular systolic function is normal with, an EF between 55 - 60 %. 9. The aortic valve is trileaflet, and appears structurally normal. No aortic stenosis or regurgitation. 10. There is trace to mild mitral regurgitation. 11. Trace tricuspid regurgitation present. 12. There is no evidence of pulmonary hypertension. FILTER TANK TENDER HELPER: Eugene Moreno RDCS
[2016-11-07 12:19] LABS: Glucose,Whole Blood 111 mg/dL (75-99)
--- NOTE | 2016-11-07 16:35 | P.PN ---
Subjective This is a 40-year-old female with history of bipolar disorder ongoing tobacco use comes in the hospital with the 5 days worth of inability to tolerate any oral intake. Patient states that she has been having diffuse abdominal pain with the nausea vomiting and watery diarrhea Patient has also been having intermittent episodes of chills and fevers over the last 2 days. Patient states that she has been having increasing complaints of shortness of breath with yellowish sputum production with same period of time Patient denies having any recent travel history. No sick contacts reported Patient was having episodes of dizziness prior to admission Patient was seen in the emergency room was noted to have an acute kidney injury UA was concerning for urinary tract infection A chest x-ray that showed a right upper lobe air space disease Today patient states that she is feeling slightly better since admission 11/05/2016 States to have significant tenderness in the right hip radiating to her groin States her cough is significantly better no fevers chills chest pain abdominal pain urinary urgency or frequency or diarrhea is reported 11/06/2016 Blood cultures are positive for staph aureus MSSA Denies having any fevers chills nausea vomiting difficulty breathing cough patient's pain in the right lower extremity is improved 11/07/2016 Patient had a PICC line placed today which was a misunderstanding with a verbal order Patient was noted to have another blood culture that is positive States that she is doing well and is anxious to go home Objective - Vital Signs Vital signs: Vital Signs Temp 97.1 F L 11/07/16 15:00 Pulse 55 L 11/07/16 16:00 Resp 18 11/07/16 16:00 BP 114/64 11/07/16 15:00 Pulse Ox 98 11/07/16 15:00 Intake & Output 11/06/16 11/07/16 11/07/16 18:59 06:59 18:59 Intake Total 200 350 Output Total 400 Balance 200 350 -400 Weight 68 kg 64 kg 64 kg Intake: Intake, IV Titration 350 Amount Vancomycin 1,000 mg In 250 Sodium Chloride 0.9% 250 ml @ 125 mls/hr IVPB Q12HR TRIP Rx#:[id number] ceFAZolin 2 gm In Sodium 100 Chloride 0.9% 100 ml @ 100 mls/hr IVPB Q8HR TRIP Rx#:[id number] Oral 200 Output: Urine 400 Other: Voiding Method Toilet Toilet Toilet # Voids 3 1 3 # Bowel Movements 0 0 0 - Exam Physical exam Gen. appearance oriented 3 in no distress Neck is supple no JVD Lungs breath sounds no wheezing rhonchi or crackles Right lower extremity appears to have tenderness on the right hip Heart S1-S2 heard regular rate and rhythm no murmurs appreciated Abdomen is soft nontender no organomegaly bowel sounds are intact Neurologically cranial nerves II-12 grossly intact no focal motor or sensory deficits noted Skin no abnormalities appreciated - Labs CBC & Chem 7: 11/07/16 08:43 11/07/16 08:43 Labs: Abnormal Lab Results - Last 24 Hours (Table) 11/06/16 11/06/16 11/06/16 Range/Units 17:25 20:48 23:40 WBC (3.8-10.6) k/uL RBC (3.80-5.40) m/uL Hgb (11.4-16.0) gm/dL Hct (34.0-46.0) % Neutrophils # (1.3-7.7) k/uL Lymphocytes # (1.0-4.8) k/uL Chloride (98-107) mmol/L Carbon Dioxide (22-30) mmol/L BUN (7-17) mg/dL Glucose (74-99) mg/dL POC Glucose (mg/dL) 130 H 166 H 165 H (75-99) mg/dL AST (14-36) U/L ALT (9-52) U/L Total Protein (6.3-8.2) g/dL Albumin (3.5-5.0) g/dL 11/07/16 11/07/16 11/07/16 Range/Units 07:09 08:43 08:43 WBC 12.1 H (3.8-10.6) k/uL RBC 3.59 L (3.80-5.40) m/uL Hgb 11.0 L (11.4-16.0) gm/dL Hct 32.4 L (34.0-46.0) % Neutrophils # 10.8 H (1.3-7.7) k/uL Lymphocytes # 0.7 L (1.0-4.8) k/uL Chloride 115 H (98-107) mmol/L Carbon Dioxide 18 L (22-30) mmol/L BUN 36 H (7-17) mg/dL Glucose 170 H (74-99) mg/dL POC Glucose (mg/dL) 121 H (75-99) mg/dL AST 47 H (14-36) U/L ALT 82 H (9-52) U/L Total Protein 5.5 L (6.3-8.2) g/dL Albumin 2.4 L (3.5-5.0) g/dL 11/07/16 Range/Units 12:02 WBC (3.8-10.6) k/uL RBC (3.80-5.40) m/uL Hgb (11.4-16.0) gm/dL Hct (34.0-46.0) % Neutrophils # (1.3-7.7) k/uL Lymphocytes # (1.0-4.8) k/uL Chloride (98-107) mmol/L Carbon Dioxide (22-30) mmol/L BUN (7-17) mg/dL Glucose (74-99) mg/dL POC Glucose (mg/dL) 111 H (75-99) mg/dL AST (14-36) U/L ALT (9-52) U/L Total Protein (6.3-8.2) g/dL Albumin (3.5-5.0) g/dL Microbiology - Last 24 Hours (Table) 11/06/16 15:59 Blood Culture Gram Stain - Preliminary Blood 11/06/16 15:59 Blood Culture - Final Blood 11/06/16 09:25 Gram Stain - Preliminary Sputum 11/05/16 13:35 Blood Culture Gram Stain - Preliminary Blood Blood Culture - Preliminary Presumptive Staph aureus Assessment and Plan Plan: #1 sepsis likely secondary to community-acquired pneumonia #2 acute kidney injury secondary to dehydration #3 bipolar disorder #4 ongoing tobacco use #5 bacteremia with gram-positive bacteria likely source being a pneumonic process. Plan Patient was noted to have cavitary pneumonia Workup to rule out endocarditis Continue with IV antibiotic therapy DC PICC line Continue with IV antibiotic CALLIE is appropriate did not show any vegetations Repeat blood cultures patient has persistent bacteremia
[2016-11-07 17:05] LABS: Glucose,Whole Blood 151 mg/dL (75-99)
[2016-11-07] MEDS: QUEtiapine 100 MG TAB PO SCH (20:18)
[2016-11-08] MEDS: NICOTINE 14MG/24HR PATCH TRANSDERM SCH ×2 (03:20→08:33)
[2016-11-08] MEDS: IPRATROPIUM-ALBUTEROL 3 ML NEB INHALATION SCH ×4 (08:06→20:02)
[2016-11-08] MEDS: KETOROLAC 30 MG/ML 1 ML VIAL IVP SCH ×3 (08:31→23:56)
[2016-11-08] MEDS: ceFAZolin 2 GM in SODIUM CHLORIDE 0.9% 100 ML IVPB SCH ×3 (08:32→23:57)
[2016-11-08] MEDS: MORPHINE SULFATE IR 15 MG TABLET PO SCH (10:24)
[2016-11-08] MEDS: SODIUM CHLORIDE 0.9% 1,000 ML IV SCH ×3 (10:26→13:21)
--- NOTE | 2016-11-08 11:00 | PN ---
DATE OF SERVICE: 11/07/2016 Reason for followup is MSSA bacteremia ? endocarditis. INTERVAL HISTORY: The patient is afebrile. She is breathing comfortably. Denies significant chest pain or shortness of breath. Occasional cough. No abdominal pain. Pain and swelling to the right medial thigh area has improved. No nausea, vomiting or any diarrhea. On examination, the blood pressure is 114/64 with a pulse of 55, temperature 97.1. She is 98% on room air. General description is a middle aged female, lying in bed, in no distress. RESPIRATORY SYSTEM: Unlabored breathing. Some coarse breath sounds at the bases. No wheeze. HEART: S1 and S2, regular rate and rhythm. ABDOMEN: Soft, no tenderness. LABS: Hemoglobin is 11, white cell count 12.1 down from yesterday of 18,000 with a BUN of 36, creatinine 0.76. Liver enzymes are elevated. Blood cultures from 11/05 as well as 11/06 were positive. Echocardiogram was negative for any vegetation. DIAGNOSTIC IMPRESSION AND PLAN: Patient with MSSA bacteremia in a patient who did have evidence of myositis and cavitating lesion in the lung likely suspicious for endocarditis. The 2-D echo is negative. Will request a CALLIE for tomorrow. The patient's blood cultures from 11/06 that is yesterday was positive. PICC line was placed yesterday. It should be discontinued and only placed when the patient has cleared her bacteremia. This was discussed in detail with the nurse as well as the attending physician. The patient will continue on cefazolin. Blood culture has been repeated today to document clearance of her bacteremia. HUSSAIN
[2016-11-08] MEDS ORDERED: MIDAZOLAM 2 MG/2 ML VIAL ONE (12:00)
[2016-11-08] MEDS ORDERED: fentaNYL (PF) 50 MCG/ML 2 ML AMP ONE (12:00)
[2016-11-08] MEDS: BENZOCAINE SPRAY 1 SPRAY CAN MUCOUS MEM ONE ×2 (12:10→12:17)
[2016-11-08] MEDS: MIDAZOLAM 2 MG/2 ML VIAL IV ONE ×2 (12:26→12:28)
[2016-11-08] MEDS ORDERED: fentaNYL (PF) 50 MCG/ML 2 ML AMP IV ONE (12:26)
[2016-11-08 12:34] VITALS: BMI 24.2
--- NOTE | 2016-11-08 13:20 | ECHOT ---
INDICATION: Rule out endocarditis. PROCEDURE: After explaining the procedure to the patient with risks and complications, blood pressure and heart rate saturation was monitored. The throat was sprayed with Cetacaine. She received 3 mg intravenous Versed, 50 mcg intravenous fentanyl after achieving moderate conscious sedated state, the probe was introduced into the esophagus without difficulty. Images were obtained. Following that, the probe was removed. There was no immediate complication. FINDINGS: Left atrial size is normal. Left ventricular size and systolic function normal. The left atrial appendage is normal. The aortic valve, mitral valve, and tricuspid valve are normal. There is no evidence of vegetation. The descending thoracic aorta appears to be minimal. Contrast bubble study revealed no insufficiency shunting across the intra-atrial septum with Valsalva maneuver. Doppler pulse wave was obtained. Mild mitral with trace to mild tricuspid regurgitation. There is no shunting by color Doppler study. CONCLUSION: 1. Normal ventricular size and systolic function. 2. Normal valvular structures with no evidence of vegetation. 3. Mild mitral with trace to mild tricuspid regurgitation. 4. No evidence of shunting across the intra-atrial septum. MTDD
--- NOTE | 2016-11-08 15:00 | CONS ---
Mrs. Zamarripa is a 41-year-old female, history of chronic tobacco use, history of bipolar disorder who presented with symptoms of progressive dyspnea, fatigue, diarrhea and was diagnosed with pneumonia. Patient had recurrent positive blood culture and recommendations were made regarding transesophageal echocardiogram. The patient denies any symptoms of chest discomfort. She denies any prior cardiac history. She has occasional dizziness but no palpitation or syncope, no clear PND or orthopnea. No clear peripheral edema. Her coronary risk factors are remarkable for the history of smoking. She is nondiabetic, no documented hyperlipidemia. Her medications at home include Seroquel, morphine, Ventolin and Xanax. REVIEW OF SYSTEMS: RESPIRATORY SYSTEM: She has history of chronic tobacco use, cough. GI SYSTEM: No recent GI bleeding, no peptic ulcer disease. SYSTEM: No dysuria or hematuria. NERVOUS SYSTEM: No stroke or seizure. PHYSICAL EXAMINATION: A 41-year-old female, alert and oriented in no apparent distress, afebrile. Blood pressure 133/70 with a heart rate in the 60s. HEAD: Normocephalic. EYES: Sclerae nonicteric. NECK: Good upstroke, no bruit, no venous distension. LUNGS: Clear to auscultation. HEART: Regular rate and rhythm, S1, S2, no S3, no S4. No murmur, no rub. ABDOMEN: Soft, nontender, positive bowel sounds, no organomegaly. EXTREMITIES: No edema, intact pulses. LAB DATA: Her CT of the chest revealed bilateral pulmonary mass with containing air raising the possibility of cavitating lesions. She had a transthoracic echocardiogram that showed the preserved left ventricular size and systolic function and no evidence of vegetations. Her hemoglobin is 11, white blood cells 12.1, BUN and creatinine 36 and 0.76. IMPRESSION: 1. Evidence of pneumonia with positive blood culture and cavitating lesion on the CT scan. 2. Chronic tobacco use. RECOMMENDATION: In view of her presentation and the results of her testing, patient will undergo transesophageal echocardiogram to rule out endocarditis although by physical examination I see no clear evidence to suggest endocarditis. The rationale behind the procedure, its risks and complications were discussed with the patient who is in full understanding and agreement. Thank you for this consult. Will follow with you. HUSSAIN
[2016-11-08] MEDS ORDERED: RX INFO: IV CONTRAST WAS GIVEN 1 EACH MISC MISCELLANE PRN (15:46)
--- NOTE | 2016-11-08 19:11 | PN ---
DATE OF SERVICE: 11/08/2016 REASON FOR FOLLOWUP: MSSA bacteremia. INTERVAL HISTORY: The patient is afebrile. She is breathing comfortably. The patient denies significant chest pain. No shortness of breath. Occasional cough. No abdominal pain. No diarrhea. The patient did tell me today that she did have a history of chronic back pain and did have previous injection in the back by Dr. Mullen, though she did have no worsening of this back pain or any extending down to the leg. On examination, blood pressure is 125/83 with a pulse of 64, temperature 96.9. She is 97% on room air. General description is a middle-aged female up in the bed in no distress. RESPIRATORY SYSTEM: Unlabored breathing. Coarse breath sounds bilaterally. HEART: S1, S2. Regular rate and rhythm. ABDOMEN: Soft. No tenderness. LABS: No new labs have been obtained today. Blood cultures that were drawn yesterday are negative so far. DIAGNOSTIC IMPRESSION AND PLAN: Patient with an MSSA bacteremia with a question of possible endocarditis. The patient did have a cavitating lesion in the lung and some myositis on the right upper thigh area. However, the patient did have an echocardiogram as well as CALLIE that have been negative. The patient does have history of chronic back pain. Underlying discitis cannot be entirely excluded. Will go ahead and obtain a CT of the lumbosacral spine, keep the patient on cefazolin 2 grams q.8, as the blood culture that was drawn on 11/07 is negative and the PICC line was placed the same day and the patient with no IV access; will leave this PICC line at this point. Continue supportive care. HUSSAIN
[2016-11-08] MEDS: ALPRAZolam 0.5 MG TAB PO PRN (19:52)
[2016-11-08] MEDS: traMADol 50 MG TAB PO PRN (22:16)
[2016-11-08] MEDS: QUEtiapine 100 MG TAB PO SCH (22:17)
--- NOTE | 2016-11-08 22:27 | CT ---
EXAMINATION TYPE: CT thor lumbar spine w con DATE OF EXAM: 11/08/2016 COMPARISON: NONE HISTORY: patient complains of back pain. CT DLP: 894.3 mGycm Automated exposure control for dose reduction was used. CONTRAST: Performed with IV Contrast, patient injected with 100 mL of Omnipaque 300. FINDINGS: There are bilateral simple-appearing pleural effusions, mild-plus on the right and mild on the left. In the subcutaneous soft tissues dependently, posterior to the dorsal spinal musculature, there is se dentary edematous change, a nonspecific gravity-dependent finding. Fluid can be seen adjacent to the uterus, consistent with incidental small volume peritoneal fluid. SKELETAL STRUCTURES: There is no malalignment. No fracture. No focal osteopenic or osteosclerotic les ion. The intervertebral discs appear well-maintained. The cortex of the skeletal structures is intact . INTRASPINAL EXAMINATION: No focal findings. PARASPINAL SOFT TISSUES: No acute processes. IMPRESSION: 1. NO ACUTE SPINAL PROCESS. THERE IS, NO CT EVIDENCE OF OSTEOMYELITIS DISCITIS COMPLEX. 2. SMALL BILATERAL PLEURAL EFFUSIONS, GREATER ON THE RIGHT.
[2016-11-09] MEDS: ACETAMINOPHEN TAB 500 MG TAB PO PRN ×2 (06:47→19:41)
[2016-11-09] MEDS: IPRATROPIUM-ALBUTEROL 3 ML NEB INHALATION SCH ×4 (08:05→19:25)
[2016-11-09] MEDS: KETOROLAC 30 MG/ML 1 ML VIAL IVP SCH (08:14)
[2016-11-09] MEDS: ceFAZolin 2 GM in SODIUM CHLORIDE 0.9% 100 ML IVPB SCH ×3 (08:15→23:58)
[2016-11-09] MEDS: NICOTINE 14MG/24HR PATCH TRANSDERM SCH (08:15)
[2016-11-09] MEDS: MORPHINE SULFATE IR 15 MG TABLET PO SCH (08:22)
--- NOTE | 2016-11-09 08:55 | PN ---
DATE OF SERVICE: 11/08/16 Ms. Zamarripa is a 40 year old female with known history of bipolar disorder, history of IVDU, admitted to the hospital with diffuse abdominal pain, nausea and vomiting and watery diarrhea and intermittent fever and chills. The patient was found to have CT evidence of cavitary lesion in the lung and blood cultures have been positive for Staph aureus. Last blood culture positive was on 2016. The patient had a CALLIE done today to rule out any infected endocarditis which has been negative. The patient also had thoracic lumbar spine CT which showed no evidence of discitis as well. Currently ID is following this patient , on IV antibiotics now. The patient was obtained with PICC line for antibiotics at home. Otherwise, the patient currently denying any chest pain or shortness of breath. No nausea, vomiting or abdominal pain. No fever, or chills. No acute overnight issues. All other review of systems negative except as above. Current medications include: 1. Tylenol. 2. DuoNeb. 3. Xanax. 4. Cefazolin. 5. Toradol. 6. Potassium per protocol. 7. Nicotine patch. 8. Seroquel. 9. Normal saline at 50 mL per hour. 10. Tramadol. Physical examination: 41 year old female lying in the bed, awake, alert and oriented times three. Appears to be in no apparent distress. Vital signs: Blood pressure 125/83. Pulse 64. Respirations 19. Temperature afebrile. Pulse ox 97% on room air. HEENT: Atraumatic. Normocephalic. Neck is supple. No JVD. CVS: S1, S2 heard. No murmurs. No gallops, No rub. Lungs bilateral air entry is present. Basal crackles positive. Nonlabored breathing. Abdomen is soft, nontender. Bowel sounds are present. 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 No focal deficits. Extremities: No edema. Pulses palpable bilaterally. No clubbing or cyanosis. Psychiatric: Cooperative. Laboratory data: WBC 12.1, hemoglobin 11.0. platelets 494. Sodium 143. Potassium 3.7. Chloride 115. Bicarb 18. BUN 36. Creatinine 0.76. Albumin 2.4. IMPRESSION: 1. Staph aureus septicemia. 2. Sepsis secondary to pneumonia with cavitating lesions in the lung. 3. Acute kidney injury secondary to volume depletion. Improved now. 4. Bipolar disorder. 5. Ongoing tobacco use. 6. History of IVDU. DISCUSSION AND PLAN: The patient will be continued on antibiotics in the form of Cefazolin as per ID recommendations and follow up on final blood culture report. Repeat blood cultures after 11/06 have been negative so far. We will try the patient is undergoing workup to rule out the source of infection likely pneumonia. CALLIE as well as CT of the lumbar and thoracic spine have been negative for any discitis. We will continue the current management and PICC line has already been placed. Further recommendations based on clinical course. MTDD
[2016-11-09] MEDS: ALPRAZolam 0.5 MG TAB PO PRN (11:28)
[2016-11-09] MEDS: SODIUM CHLORIDE 0.9% 1,000 ML IV SCH (14:25)
[2016-11-09] MEDS: traMADol 50 MG TAB PO PRN ×2 (15:27→23:58)
[2016-11-09] MEDS: QUEtiapine 100 MG TAB PO SCH (22:00)
--- NOTE | 2016-11-10 00:11 | US ---
EXAM: US Duplex Right Lower Extremity Veins CLINICAL HISTORY: Right thigh pain TECHNIQUE: Real-time ultrasound scan of the veins of the right lower extremity with color Doppler flow, spectral waveform analysis and compression. COMPARISON: 11/03/2016 FINDINGS: Deep veins: Unremarkable. No DVT in the visualized common femoral, femoral, proximal deep femoral or popliteal veins. The veins are compressible with normal color flow and augmentation. Superficial veins: Unremarkable. No thrombus in the visualized great saphenous vein. Soft tissues: No acute findings. No popliteal cyst. IMPRESSION: Normal right lower extremity duplex venous ultrasound.
[2016-11-10] MEDS: IPRATROPIUM-ALBUTEROL 3 ML NEB INHALATION SCH ×4 (07:44→19:24)
[2016-11-10] MEDS: MORPHINE SULFATE IR 15 MG TABLET PO SCH (07:49)
[2016-11-10] MEDS: NICOTINE 14MG/24HR PATCH TRANSDERM SCH (07:49)
[2016-11-10] MEDS: ceFAZolin 2 GM in SODIUM CHLORIDE 0.9% 100 ML IVPB SCH (07:50)
[2016-11-10] MEDS: traMADol 50 MG TAB PO PRN (09:59)
[2016-11-10] MEDS: ACETAMINOPHEN TAB 500 MG TAB PO PRN (10:04)
[2016-11-10 12:03] LABS: Basophils % (A) 0 %; CH 30.4; CHCM 34.4; Eosinophils # (A) 0.3 k/uL (0-0.7); Eosinophils % (A) 2 %; HCT 31.7 % (34.0-46.0); HDW 2.96; HGB 10.9 gm/dL (11.4-16.0); Luc # (Auto) 0.05; Luc % (Auto) 0; Lymphocytes # (A) 1.5 k/uL (1.0-4.8); Lymphocytes % (A) 9 %; MCH 30.4 pg (25.0-35.0); MCHC 34.3 g/dL (31.0-37.0); MCV 88.7 fL (80.0-100.0); Mean Platelet Volume 7.8; Monocytes # (A) 0.2 k/uL (0-1.0); Monocytes % (A) 2 %; Neutrophils # (A) 13.6 k/uL (1.3-7.7); Neutrophils % (A) 87 %; RBC 3.58 m/uL (3.80-5.40); WBC 15.7 k/uL (3.8-10.6)
[2016-11-10 12:07] LABS: ALT 22 U/L (9-52); AST 17 U/L (14-36); Alkaline Phosphatase 75 U/L (38-126); Anion Gap 3 mmol/L; Blood Urea Nitrogen 10 mg/dL (7-17); Calcium 7.8 mg/dL (8.4-10.2); Carbon Dioxide 29 mmol/L (22-30); Chloride 106 mmol/L (98-107); Glucose 105 mg/dL (74-99); Non-African American GFR(MDRD) >60 (>60 ml/min/1.73 sqM); Potassium 3.5 mmol/L (3.5-5.1); Sodium 138 mmol/L (137-145); Total Bilirubin 0.2 mg/dL (0.2-1.3)
[2016-11-10] MEDS: SODIUM CHLORIDE 0.9% 1,000 ML IV SCH (14:28)
[2016-11-10] MEDS: NAFCILLIN 2 GM in SODIUM CHLORIDE 0.9% 100 ML IVPB SCH ×2 (15:29→19:46)
[2016-11-10] MEDS: IBUPROFEN 400 MG TAB PO SCH ×2 (15:30→22:43)
--- NOTE | 2016-11-10 16:49 | P.PN ---
Subjective Principal diagnosis: MSSA septicemia Ms. Zamarripa is a 40 year old female with known history of bipolar disorder, history of IVDU, admitted to the hospital with diffuse abdominal pain, nausea and vomiting and watery diarrhea and intermittent fever and chills. The patient was found to have CT evidence of cavitary lesion in the lung and blood cultures have been positive for Staph aureus. Last blood culture positive was on 2016. The patient had a CALLIE done today to rule out any infected endocarditis which has been negative. The patient also had thoracic lumbar spine CT which showed no evidence of discitis as well. Currently ID is following this patient , on IV antibiotics now. The patient was obtained with PICC line for antibiotics at home. on 11/09/16 Patient today complaining of right thigh pain and difficulty examination. No fever no chills. Her blood cultures on 713 came back positive for staph aureus again and PICC line has been discontinued. Patient is being continued on IV cefazolin for MSSA. continued on pain management. patient currently denying any chest pain or shortness of breath. No nausea, vomiting or abdominal pain. No fever, or chills. No acute overnight issues. All other review of systems negative except as above. Objective - Vital Signs Vital signs: Vital Signs Temp 97.9 F 11/10/16 16:23 Pulse 111 H 11/10/16 16:23 Resp 16 11/10/16 16:23 BP 103/56 11/10/16 16:23 Pulse Ox 95 11/10/16 16:23 Intake & Output 11/09/16 11/10/16 11/10/16 18:59 06:59 18:59 Intake Total 260 260 Output Total 800 Balance 260 -800 260 Intake: IV 260 Sodium Chloride 0.9% 1, 160 000 ml @ 20 mls/hr IV . Q24H TRIP Rx#:[id number] ceFAZolin 2 gm In Sodium 100 Chloride 0.9% 100 ml @ 100 mls/hr IVPB Q8HR TRIP Rx#:[id number] Intake, IV Titration 260 Amount Sodium Chloride 0.9% 1, 160 000 ml @ 20 mls/hr IV . Q24H TRIP Rx#:[id number] ceFAZolin 2 gm In Sodium 100 Chloride 0.9% 100 ml @ 100 mls/hr IVPB Q8HR TRIP Rx#:[id number] Output: Urine 800 Other: # Voids 1 # Bowel Movements 1 - Exam 41 year old female lying in the bed, awake, alert and oriented times three. Appears to be in no apparent distress. HEENT: Atraumatic. Normocephalic. Neck is supple. No JVD. CVS: S1, S2 heard. No murmurs. No gallops, No rub. Lungs bilateral air entry is present. Basal crackles positive. Nonlabored breathing. Abdomen is soft, nontender. Bowel sounds are present. EVENTS AND PROMOTIONS ASSISTANT: Awake, alert and oriented times three. No focal deficits. Extremities: No edema. Pulses palpable bilaterally. No clubbing or cyanosis. Right upper thigh medial side is tender to palpation and indurated. Psychiatric: Cooperative. - Labs CBC & Chem 7: 11/10/16 11:36 11/10/16 11:36 Labs: Abnormal Lab Results - Last 24 Hours (Table) 11/10/16 11/10/16 Range/Units 11:36 11:36 WBC 15.7 H (3.8-10.6) k/uL RBC 3.58 L (3.80-5.40) m/uL Hgb 10.9 L (11.4-16.0) gm/dL Hct 31.7 L (34.0-46.0) % Neutrophils # 13.6 H (1.3-7.7) k/uL Glucose 105 H (74-99) mg/dL Calcium 7.8 L (8.4-10.2) mg/dL Total Protein 5.0 L (6.3-8.2) g/dL Albumin 1.9 L (3.5-5.0) g/dL Microbiology - Last 24 Hours (Table) 11/07/16 13:26 Blood Culture Gram Stain - Final Blood Blood Culture - Final Staphylococcus aureus Assessment and Plan Plan: 1. Staph aureus septicemia. Methicillin sensitive. Blood cultures on 11/07 came positive again. 2. Sepsis secondary to pneumonia with cavitating lesions in the lung. 3. Acute kidney injury secondary to volume depletion. Improved now. 4. Bipolar disorder. 5. Ongoing tobacco use. 6. History of IVDU. 7 right thigh myositis as per MRI DISCUSSION AND PLAN: The patient will be continued on antibiotics in the form of Cefazolin as per ID recommendations and follow-up repeat blood culture report. patient is undergoing workup to rule out the source of infection likely pneumonia. CALLIE as well as CT of the lumbar and thoracic spine have been negative for any discitis. Ultrasound lower extremity duplex was negative for DVT. Will check dedicated right thigh ultrasound. Continue the pain management. We will continue the current management and PICC line has already been placed. Further recommendations based on clinical course. Time with Patient: Greater than 30
--- NOTE | 2016-11-10 17:16 | P.PN ---
Subjective Principal diagnosis: MSSA septicemia Ms. Zamarripa is a 40 year old female with known history of bipolar disorder, history of IVDU, admitted to the hospital with diffuse abdominal pain, nausea and vomiting and watery diarrhea and intermittent fever and chills. The patient was found to have CT evidence of cavitary lesion in the lung and blood cultures have been positive for Staph aureus. Last blood culture positive was on 2016. The patient had a CALLIE done today to rule out any infected endocarditis which has been negative. The patient also had thoracic lumbar spine CT which showed no evidence of discitis as well. Currently ID is following this patient , on IV antibiotics now. The patient was obtained with PICC line for antibiotics at home. on 11/09/16 Patient today complaining of right thigh pain and difficulty examination. No fever no chills. Her blood cultures on 713 came back positive for staph aureus again and PICC line has been discontinued. Patient is being continued on IV cefazolin for MSSA. continued on pain management. On 11/10/2016 Patient's right thigh pain is still present. Patient was febrile this morning. T-max of 101.2. No nausea vomiting or abdominal pain. No chest pain or short of breath. patient currently denying any chest pain or shortness of breath. No nausea, vomiting or abdominal pain. No fever, or chills. No acute overnight issues. All other review of systems negative except as above. Objective - Vital Signs Vital signs: Vital Signs Temp 97.9 F 11/10/16 16:23 Pulse 111 H 11/10/16 16:23 Resp 16 11/10/16 16:23 BP 103/56 11/10/16 16:23 Pulse Ox 95 11/10/16 16:23 Intake & Output 11/09/16 11/10/16 11/10/16 18:59 06:59 18:59 Intake Total 260 260 Output Total 800 Balance 260 -800 260 Intake: IV 260 Sodium Chloride 0.9% 1, 160 000 ml @ 20 mls/hr IV . Q24H TRIP Rx#:[id number] ceFAZolin 2 gm In Sodium 100 Chloride 0.9% 100 ml @ 100 mls/hr IVPB Q8HR TRIP Rx#:[id number] Intake, IV Titration 260 Amount Sodium Chloride 0.9% 1, 160 000 ml @ 20 mls/hr IV . Q24H TRIP Rx#:[id number] ceFAZolin 2 gm In Sodium 100 Chloride 0.9% 100 ml @ 100 mls/hr IVPB Q8HR TRIP Rx#:[id number] Output: Urine 800 Other: # Voids 1 # Bowel Movements 1 - Exam 41 year old female lying in the bed, awake, alert and oriented times three. Appears to be in no apparent distress. HEENT: Atraumatic. Normocephalic. Neck is supple. No JVD. CVS: S1, S2 heard. No murmurs. No gallops, No rub. Lungs bilateral air entry is present. Basal crackles positive. Nonlabored breathing. Abdomen is soft, nontender. Bowel sounds are present. ROPING TENDER: Awake, alert and oriented times three. No focal deficits. Extremities: No edema. Pulses palpable bilaterally. No clubbing or cyanosis. Right upper thigh medial side is tender to palpation and indurated. Psychiatric: Cooperative. - Labs CBC & Chem 7: 11/10/16 11:36 11/10/16 11:36 Labs: Abnormal Lab Results - Last 24 Hours (Table) 11/10/16 11/10/16 Range/Units 11:36 11:36 WBC 15.7 H (3.8-10.6) k/uL RBC 3.58 L (3.80-5.40) m/uL Hgb 10.9 L (11.4-16.0) gm/dL Hct 31.7 L (34.0-46.0) % Neutrophils # 13.6 H (1.3-7.7) k/uL Glucose 105 H (74-99) mg/dL Calcium 7.8 L (8.4-10.2) mg/dL Total Protein 5.0 L (6.3-8.2) g/dL Albumin 1.9 L (3.5-5.0) g/dL Microbiology - Last 24 Hours (Table) 11/07/16 13:26 Blood Culture Gram Stain - Final Blood Blood Culture - Final Staphylococcus aureus Assessment and Plan Plan: 1. Staph aureus septicemia. Methicillin sensitive. Blood cultures on 11/07 came positive again. 2. Sepsis secondary to pneumonia with cavitating lesions in the lung. 3. Acute kidney injury secondary to volume depletion. Improved now. 4. Bipolar disorder. 5. Ongoing tobacco use. 6. History of IVDU. 7 right thigh myositis as per MRI DISCUSSION AND PLAN: The patient will be continued on antibiotics in the form of Cefazolin as per ID recommendations and follow-up repeat blood culture report. patient is undergoing workup to rule out the source of infection likely pneumonia. CALLIE as well as CT of the lumbar and thoracic spine have been negative for any discitis. Ultrasound lower extremity duplex was negative for DVT. Will check dedicated right thigh ultrasound. PICC line was discontinued due to blood cultures positive back again on 11/07. Repeat cultures will be followed Continue the pain management. Further recommendations based on clinical course. Time with Patient: Greater than 30
[2016-11-10] MEDS: ALPRAZolam 0.5 MG TAB PO PRN (17:55)
[2016-11-10] MEDS: RIFAMPIN 300 MG CAP PO SCH (21:36)
[2016-11-10] MEDS: QUEtiapine 100 MG TAB PO SCH (21:36)
[2016-11-11] MEDS: NAFCILLIN 2 GM in SODIUM CHLORIDE 0.9% 100 ML IVPB SCH ×7 (00:03→23:59)
[2016-11-11] MEDS: IPRATROPIUM-ALBUTEROL 3 ML NEB INHALATION SCH ×4 (07:56→20:14)
[2016-11-11] MEDS: IBUPROFEN 400 MG TAB PO SCH ×3 (09:19→20:05)
[2016-11-11] MEDS: MORPHINE SULFATE IR 15 MG TABLET PO SCH (09:20)
[2016-11-11] MEDS: NICOTINE 14MG/24HR PATCH TRANSDERM SCH (09:21)
[2016-11-11] MEDS: RIFAMPIN 300 MG CAP PO SCH ×2 (09:22→20:05)
--- NOTE | 2016-11-11 09:27 | PN ---
DATE OF SERVICE: 11/10/2016 Reason for followup is MSSA bacteremia. INTERVAL HISTORY: The patient is spiking a fever of 101.2 degrees Fahrenheit this morning, now the patient is afebrile since then. She has been feeling comfortably, complaining of some pain in the right thigh area, no redness. Patient denies significant chest pain. No shortness of breath. No cough. No abdominal pain or any diarrhea. On examination, blood pressure is 108/62 with a pulse of 98, temperature 99.2. She is 92% on room air. General description is a middle age female up in bed in no distress. RESPIRATORY SYSTEM: Unlabored breathing. Clear to auscultation anteriorly. HEART: S1 and S2, regular rate and rhythm. ABDOMEN: Soft, no tenderness. LABS: Hemoglobin is 10.9, white count 15.7 with a BUN of 10, creatinine 0.55. DIAGNOSTIC IMPRESSION AND PLAN: Patient with MSSA bacteremia in a patient who did have extensive workup so far no clear focus with concern for possible septic emboli especially with lesion in the lungs and right upper thigh myositis. However, echocardiogram and CALLIE has been negative. CT of the lumbosacral spine was negative as well. Will go ahead and obtain a WBC scan. Antibiotic will be switched to Nafcillin and Rifampin. blood cultures x 1 today. Continue support care. ALAND
[2016-11-11] MEDS: ALPRAZolam 0.5 MG TAB PO PRN (12:03)
[2016-11-11] MEDS: SODIUM CHLORIDE 0.9% 1,000 ML IV SCH (12:47)
[2016-11-11] MEDS: QUEtiapine 100 MG TAB PO SCH (20:06)
[2016-11-12] MEDS: NAFCILLIN 2 GM in SODIUM CHLORIDE 0.9% 100 ML IVPB SCH ×5 (04:27→20:09)
[2016-11-12] MEDS: ALPRAZolam 0.5 MG TAB PO PRN (04:44)
--- NOTE | 2016-11-12 06:05 | PN ---
DATE OF SERVICE: 11/11/2016 Reason for followup is MSSA bacteremia. INTERVAL HISTORY: The patient did have low grade fever this afternoon, however, she was afebrile this morning. She has been breathing comfortably. Denies significant chest pain or shortness of breath or cough. No abdominal pain. Pain to the right thigh area has improved. On examination, blood pressure is 108/62 with a pulse of 93, temperature 97.7. She is 92% on room air. General description is a middle age female up in the bed in no distress. RESPIRATORY SYSTEM: Unlabored breathing. Clear to auscultation anteriorly. HEART: S1 and S2 regular rate and rhythm. ABDOMEN: Soft. No tenderness. LABS: No new lab has been repeated today. Blood cultures since the so far negative. DIAGNOSTIC IMPRESSION AND PLAN: Patient with MSSA bacteremia . The patient did have extensive workup. So far no clear focus except the myositis in the right thigh with no evidence of any abscess and some cavitating lesion in the lung. Will initiated consult for an endocarditis, that has been ruled out. Currently on nafcillin and rifampin. Will continue awaiting for the blood cultures to clear before placing a PICC line and awaiting the WBC scan. HUSSAIN
[2016-11-12] MEDS: IPRATROPIUM-ALBUTEROL 3 ML NEB INHALATION SCH ×4 (08:08→19:38)
[2016-11-12] MEDS: NICOTINE 14MG/24HR PATCH TRANSDERM SCH (08:31)
[2016-11-12] MEDS: RIFAMPIN 300 MG CAP PO SCH ×2 (08:32→20:10)
[2016-11-12] MEDS: IBUPROFEN 400 MG TAB PO SCH ×3 (08:32→22:40)
[2016-11-12] MEDS: MORPHINE SULFATE IR 15 MG TABLET PO SCH (08:32)
--- NOTE | 2016-11-12 12:28 | PN ---
DATE OF SERVICE: 11/12/2016 Reason for followup is MSSA bacteremia with right thigh myositis and lytic lesion in the lung. INTERVAL HISTORY: The patient is afebrile. She is breathing comfortably. Denies significant chest pain, no shortness of breath, cough, pain. The diarrhea has improved and no new symptoms. On examination, her blood pressure is 114/70 with a pulse of 91, temperature of 98.8. He is 92% on room air. General description is an elderly female in the bed, in no distress. RESPIRATORY SYSTEM: Unlabored breathing, clear to auscultation anteriorly. HEART: S1, S2, regular rate and rhythm. ABDOMEN: Soft, no tenderness. LABS: No new lab has been obtained. Blood cultures from 11/10/ so far negative. DIAGNOSTIC IMPRESSION AND PLAN: Patient with an methicillin-susceptible Staphylococcus aureus bacteremia, persistent with a vascular source. Patient did have a right thigh myositis with some lytic lesion in the lungs. Blood cultures from 11/10/ so far negative. Currently on Nafcillin which will continue with a plan to switch her over to Cefazolin at the time of discharge, waiting for the repeat cultures to finalize. Plan of care was discussed with the attending as she will need a PICC line and did have history of IV drug use of 3 months ago. Educated the patient about the PICC line and admitting any drugs in the PICC line that can lead to . Patient says she has been doing better and no drugs over the last 3 months and will be staying at her mother-in- law's house and no intention of abusing the PICC line. HUSSAIN
[2016-11-12] MEDS: SODIUM CHLORIDE 0.9% 1,000 ML IV SCH (13:58)
[2016-11-12] MEDS: QUEtiapine 100 MG TAB PO SCH (20:09)
--- NOTE | 2016-11-12 23:03 | P.PN ---
Subjective Principal diagnosis: MSSA septicemia Ms. Zamarripa is a 40 year old female with known history of bipolar disorder, history of IVDU, admitted to the hospital with diffuse abdominal pain, nausea and vomiting and watery diarrhea and intermittent fever and chills. The patient was found to have CT evidence of cavitary lesion in the lung and blood cultures have been positive for Staph aureus. Last blood culture positive was on 2016. The patient had a CALLIE done today to rule out any infected endocarditis which has been negative. The patient also had thoracic lumbar spine CT which showed no evidence of discitis as well. Currently ID is following this patient , on IV antibiotics now. The patient was obtained with PICC line for antibiotics at home. on 11/09/16 Patient today complaining of right thigh pain and difficulty examination. No fever no chills. Her blood cultures on 713 came back positive for staph aureus again and PICC line has been discontinued. Patient is being continued on IV cefazolin for MSSA. continued on pain management. On 11/10/2016 Patient's right thigh pain is still present. Patient was febrile this morning. T-max of 101.2. No nausea vomiting or abdominal pain. No chest pain or short of breath. On 11/11/2016 Patient's right thigh pain has improved. Patient has been afebrile for the past 24 hours. The patient's antibiotics have been changed to naficillin and rifampin as per ID recommendations. Repeat blood cultures after 11/07 have been negative. And WBCs has been ordered to identify the source of infection. Review of systems- patient currently denying any chest pain or shortness of breath. No nausea, vomiting or abdominal pain. No fever, or chills. No acute overnight issues. All other review of systems negative except as above. Objective - Vital Signs Vital signs: Vital Signs Temp 100.3 F H 11/11/16 19:15 Pulse 93 11/11/16 14:56 Resp 20 11/11/16 14:56 BP 108/62 11/11/16 14:56 Pulse Ox 92 L 11/11/16 14:56 Intake & Output 11/11/16 11/11/16 11/12/16 06:59 18:59 06:59 Intake Total 898 Balance 898 Intake: Oral 898 Other: Voiding Method Toilet # Voids 1 3 # Bowel Movements 1 - Exam 41 year old female lying in the bed, awake, alert and oriented times three. Appears to be in no apparent distress. HEENT: Atraumatic. Normocephalic. Neck is supple. No JVD. CVS: S1, S2 heard. No murmurs. No gallops, No rub. Lungs bilateral air entry is present. Basal crackles positive. Nonlabored breathing. Abdomen is soft, nontender. Bowel sounds are present. 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 No focal deficits. Extremities: No edema. Pulses palpable bilaterally. No clubbing or cyanosis. Right upper thigh medial side is tender to palpation and indurated- improved. Psychiatric: Cooperative. - Labs CBC & Chem 7: 11/10/16 11:36 11/10/16 11:36 Labs: Microbiology - Last 24 Hours (Table) 11/10/16 11:03 Blood Culture - Preliminary Blood No Growth after 24 hours 11/07/16 13:26 Blood Culture Gram Stain - Preliminary Blood Blood Culture - Final Staphylococcus aureus Assessment and Plan Plan: 1. Staph aureus septicemia. Methicillin sensitive. Blood cultures on 11/07 came positive again. 2. Sepsis secondary to pneumonia with cavitating lesions in the lung. 3. Acute kidney injury secondary to volume depletion. Improved now. 4. Bipolar disorder. 5. Ongoing tobacco use. 6. History of IVDU. 7 right thigh myositis as per MRI DISCUSSION AND PLAN: Antibiotics have been changed as per ID recommendations nafcillin and rifampin and follow-up repeat blood culture report. Patient is undergoing workup to rule out the source of infection - tagged WBC has been ordered. CALLIE as well as CT of the lumbar and thoracic spine have been negative for any discitis. Ultrasound lower extremity duplex was negative for DVT. Will check dedicated right thigh ultrasound. PICC line was discontinued due to blood cultures positive back again on 11/07. Repeat cultures will be followed. Continue the pain management. Further recommendations based on clinical course.
--- NOTE | 2016-11-12 23:06 | P.PN ---
Subjective Principal diagnosis: MSSA septicemia Ms. Zamarripa is a 40 year old female with known history of bipolar disorder, history of IVDU, admitted to the hospital with diffuse abdominal pain, nausea and vomiting and watery diarrhea and intermittent fever and chills. The patient was found to have CT evidence of cavitary lesion in the lung and blood cultures have been positive for Staph aureus. Last blood culture positive was on 2016. The patient had a CALLIE done today to rule out any infected endocarditis which has been negative. The patient also had thoracic lumbar spine CT which showed no evidence of discitis as well. Currently ID is following this patient , on IV antibiotics now. The patient was obtained with PICC line for antibiotics at home. on 11/09/16 Patient today complaining of right thigh pain and difficulty examination. No fever no chills. Her blood cultures on 713 came back positive for staph aureus again and PICC line has been discontinued. Patient is being continued on IV cefazolin for MSSA. continued on pain management. On 11/10/2016 Patient's right thigh pain is still present. Patient was febrile this morning. T-max of 101.2. No nausea vomiting or abdominal pain. No chest pain or short of breath. On 11/11/2016 Patient's right thigh pain has improved. Patient has been afebrile for the past 24 hours. The patient's antibiotics have been changed to naficillin and rifampin as per ID recommendations. Repeat blood cultures after 11/07 have been negative. And WBCs has been ordered to identify the source of infection. On 11/12/2016 Patient continues to be afebrile. Blood cultures from yesterday have been negative so far. Right thigh pain has much improved. Awaiting final ID recommendations for antibiotic choice. Review of systems- patient currently denying any chest pain or shortness of breath. No nausea, vomiting or abdominal pain. No fever, or chills. No acute overnight issues. All other review of systems negative except as above. Objective - Vital Signs Vital signs: Vital Signs Temp 99.9 F H 11/12/16 14:49 Pulse 100 11/12/16 14:49 Resp 20 11/12/16 14:49 BP 123/86 11/12/16 14:49 Pulse Ox 90 L 11/12/16 14:49 Intake & Output 11/12/16 11/12/1617 06:59 18:59 06:59 Intake Total 1200 400 Balance 1200 400 Intake: Oral 1200 400 Other: # Voids 1 2 - Exam 41 year old female lying in the bed, awake, alert and oriented times three. Appears to be in no apparent distress. HEENT: Atraumatic. Normocephalic. Neck is supple. No JVD. CVS: S1, S2 heard. No murmurs. No gallops, No rub. Lungs bilateral air entry is present. Basal crackles positive. Nonlabored breathing. Abdomen is soft, nontender. Bowel sounds are present. 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 No focal deficits. Extremities: No edema. Pulses palpable bilaterally. No clubbing or cyanosis. Right upper thigh medial side is tender to palpation and indurated- improved. Psychiatric: Cooperative. - Labs CBC & Chem 7: 11/10/16 11:36 11/10/16 11:36 Labs: Microbiology - Last 24 Hours (Table) 11/11/16 11:53 Blood Culture - Preliminary Blood No Growth after 24 hours 11/10/16 11:03 Blood Culture - Preliminary Blood No Growth after 48 hours Assessment and Plan Plan: 1. Staph aureus septicemia. Methicillin sensitive. Blood cultures on 11/07 came positive again. 2. Sepsis secondary to pneumonia with cavitating lesions in the lung. 3. Acute kidney injury secondary to volume depletion. Improved now. 4. Bipolar disorder. 5. Ongoing tobacco use. 6. History of IVDU. 7 right thigh myositis as per MRI DISCUSSION AND PLAN: Antibiotics have been changed as per ID recommendations nafcillin and rifampin and follow-up repeat blood culture report. Patient is undergoing workup to rule out the source of infection - tagged WBC has been ordered. CALLIE as well as CT of the lumbar and thoracic spine have been negative for any discitis. Ultrasound lower extremity duplex was negative for DVT. PICC line was discontinued due to blood cultures positive back again on 11/07. Repeat cultures from 11/10 have been negative so far. Continue the pain management. Further recommendations based on clinical course.
[2016-11-13] MEDS: NAFCILLIN 2 GM in SODIUM CHLORIDE 0.9% 100 ML IVPB SCH ×7 (00:18→23:44)
[2016-11-13] MEDS: IPRATROPIUM-ALBUTEROL 3 ML NEB INHALATION SCH ×4 (07:37→20:40)
[2016-11-13] MEDS: ALPRAZolam 0.5 MG TAB PO PRN (09:35)
[2016-11-13] MEDS: MORPHINE SULFATE IR 15 MG TABLET PO SCH (09:35)
[2016-11-13] MEDS: NICOTINE 14MG/24HR PATCH TRANSDERM SCH (09:36)
[2016-11-13] MEDS: RIFAMPIN 300 MG CAP PO SCH ×2 (09:36→20:31)
[2016-11-13] MEDS: IBUPROFEN 400 MG TAB PO SCH ×3 (09:45→22:26)
--- NOTE | 2016-11-13 14:23 | NM ---
EXAMINATION TYPE: NM WBC whole body DATE OF EXAM: 11/13/2016 COMPARISON: NONE HISTORY: Myositis TECHNIQUE: Following administration of 24.2 mCi Tc99m Ceretec. Images obtained 4 hour(s) and 24 chi r(s) post injection. FINDINGS: Normal physiological tracer activity is noted in the liver and spleen and in the bone marrow of the a xial and appendicular skeleton. No abnormal activity is noted within the soft tissues of the right thigh. IMPRESSION: Normal white blood cell scan. No evidence for abnormal tracer activity.
[2016-11-13] MEDS: SODIUM CHLORIDE 0.9% 1,000 ML IV SCH (14:27)
[2016-11-13 15:02] LABS: Anion Gap 6 mmol/L; Blood Urea Nitrogen 7 mg/dL (7-17); Calcium 8.3 mg/dL (8.4-10.2); Carbon Dioxide 27 mmol/L (22-30); Chloride 106 mmol/L (98-107); Glucose 142 mg/dL (74-99); Non-African American GFR(MDRD) >60 (>60 ml/min/1.73 sqM); Potassium 3.7 mmol/L (3.5-5.1); Sodium 139 mmol/L (137-145)
[2016-11-13 15:08] LABS: Basophils % (A) 0 %; CH 30.3; CHCM 33.6; Eosinophils # (A) 0.3 k/uL (0-0.7); Eosinophils % (A) 2 %; HCT 33.9 % (34.0-46.0); HDW 2.92; HGB 11.4 gm/dL (11.4-16.0); Luc # (Auto) 0.21; Luc % (Auto) 2; Lymphocytes # (A) 2.1 k/uL (1.0-4.8); Lymphocytes % (A) 18 %; MCH 30.6 pg (25.0-35.0); MCHC 33.8 g/dL (31.0-37.0); MCV 90.5 fL (80.0-100.0); Mean Platelet Volume 8.2; Monocytes # (A) 0.5 k/uL (0-1.0); Monocytes % (A) 4 %; Neutrophils # (A) 8.9 k/uL (1.3-7.7); Neutrophils % (A) 74 %; RBC 3.74 m/uL (3.80-5.40); RDW 15.5 % (11.5-15.5); WBC (Perox) 13.06
--- NOTE | 2016-11-13 17:39 | PN ---
DATE OF SERVICE: 11/13/2016 REASON FOR FOLLOWUP: MSSA bacteremia. INTERVAL HISTORY: The patient is afebrile. She is breathing comfortably. She denies significant chest pain. No shortness of breath or cough. No abdominal pain. Pain to the right thigh is improved. There is no redness. On examination, blood pressure is 136/75 with a pulse of 85, temperature 98.9. She is 93% on room air. General description is a middle-aged female lying in bed in no distress. RESPIRATORY SYSTEM: Unlabored breathing. Clear to auscultation anteriorly. HEART: S1, S2. Regular rate and rhythm. ABDOMEN: Soft. No tenderness. RIGHT UPPER THIGH: No significant induration or redness was noticed. LABS: No new labs have been obtained today, but the blood cultures from 11/10 and 11/11 have been negative. DIAGNOSTIC IMPRESSION AND PLAN: Patient with an MSSA bacteremia with a patient who did have right thigh myositis and some cavitating lesion in the lung, though no ( ) source has been noticed or any lesion in the spine. Waiting for the WBC scan to finalize. The patient is a hard stick and she will need an IV antibiotic in the outpatient setting. PICC line will be placed today, as blood culture is negative for 72 hours. Continue patient on nafcillin. Continue supportive care. HUSSAIN
[2016-11-13] MEDS: QUEtiapine 100 MG TAB PO SCH (20:31)
--- NOTE | 2016-11-13 23:57 | P.PN ---
Subjective Principal diagnosis: MSSA septicemia Ms. Zamarripa is a 40 year old female with known history of bipolar disorder, history of IVDU, admitted to the hospital with diffuse abdominal pain, nausea and vomiting and watery diarrhea and intermittent fever and chills. The patient was found to have CT evidence of cavitary lesion in the lung and blood cultures have been positive for Staph aureus. Last blood culture positive was on 2016. The patient had a CALLIE done today to rule out any infected endocarditis which has been negative. The patient also had thoracic lumbar spine CT which showed no evidence of discitis as well. Currently ID is following this patient , on IV antibiotics now. The patient was obtained with PICC line for antibiotics at home. on 11/09/16 Patient today complaining of right thigh pain and difficulty examination. No fever no chills. Her blood cultures on 713 came back positive for staph aureus again and PICC line has been discontinued. Patient is being continued on IV cefazolin for MSSA. continued on pain management. On 11/10/2016 Patient's right thigh pain is still present. Patient was febrile this morning. T-max of 101.2. No nausea vomiting or abdominal pain. No chest pain or short of breath. On 11/11/2016 Patient's right thigh pain has improved. Patient has been afebrile for the past 24 hours. The patient's antibiotics have been changed to naficillin and rifampin as per ID recommendations. Repeat blood cultures after 11/07 have been negative. And WBCs has been ordered to identify the source of infection. On 11/12/2016 Patient continues to be afebrile. Blood cultures from yesterday have been negative so far. Right thigh pain has much improved. Awaiting final ID recommendations for antibiotic choice. On 11/13/2016 Patient denies having any active complaints overnight. Patient's right thigh pain has improved. Review of systems- patient currently denying any chest pain or shortness of breath. No nausea, vomiting or abdominal pain. No fever, or chills. No acute overnight issues. All other review of systems negative except as above. Objective - Vital Signs Vital signs: Vital Signs Temp 99.6 F 11/13/16 15:48 Pulse 93 11/13/16 15:48 Resp 20 11/13/16 15:48 BP 134/88 11/13/16 15:48 Pulse Ox 92 L 11/13/16 15:48 Intake & Output 11/13/16 11/13/16 11/14/16 06:59 18:59 06:59 Intake Total 550 600 Balance 550 600 Weight 64 kg Intake: Oral 550 600 Other: Voiding Method Toilet Toilet Toilet # Voids 1 2 1 - Exam 41 year old female lying in the bed, awake, alert and oriented times three. Appears to be in no apparent distress. HEENT: Atraumatic. Normocephalic. Neck is supple. No JVD. CVS: S1, S2 heard. No murmurs. No gallops, No rub. Lungs bilateral air entry is present. Basal crackles positive. Nonlabored breathing. Abdomen is soft, nontender. Bowel sounds are present. 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 No focal deficits. Extremities: No edema. Pulses palpable bilaterally. No clubbing or cyanosis. Right upper thigh medial side is tender to palpation and indurated- improved. Psychiatric: Cooperative. - Labs CBC & Chem 7: 11/13/16 14:28 11/13/16 14:28 Labs: Abnormal Lab Results - Last 24 Hours (Table) 11/13/16 11/13/16 Range/Units 14:28 14:28 WBC 12.0 H (3.8-10.6) k/uL RBC 3.74 L (3.80-5.40) m/uL Hct 33.9 L (34.0-46.0) % Plt Count 547 H (150-450) k/uL Neutrophils # 8.9 H (1.3-7.7) k/uL Glucose 142 H (74-99) mg/dL Calcium 8.3 L (8.4-10.2) mg/dL Microbiology - Last 24 Hours (Table) 11/11/16 11:53 Blood Culture - Preliminary Blood No Growth after 48 hours 11/10/16 11:03 Blood Culture - Preliminary Blood No Growth after 72 hours Assessment and Plan Plan: ASSESSMENT 1. Staph aureus septicemia. Methicillin sensitive. Blood cultures on 11/07 came positive again. 2. Sepsis secondary to pneumonia with cavitating lesions in the lung. 3. Acute kidney injury secondary to volume depletion. Improved now. 4. Bipolar disorder. 5. Ongoing tobacco use. 6. History of IVDU. 7 right thigh myositis as per MRI DISCUSSION AND PLAN: Antibiotics have been changed as per ID recommendations nafcillin and rifampin and follow-up repeat blood culture report. Patient is undergoing workup to rule out the source of infection - tagged WBC has been ordered- results did not show a source of infection. CALLIE as well as CT of the lumbar and thoracic spine have been negative for any discitis. Ultrasound lower extremity duplex was negative for DVT. PICC line was discontinued due to blood cultures positive back again on 11/07. Repeat cultures from 11/10 have been negative so far. She will probably have a PICC line placed tomorrow Continue the pain management. Further recommendations based on clinical course.
[2016-11-14] MEDS: NAFCILLIN 2 GM in SODIUM CHLORIDE 0.9% 100 ML IVPB SCH ×4 (03:43→15:04)
[2016-11-14] MEDS: traMADol 50 MG TAB PO PRN ×2 (03:58→14:05)
[2016-11-14 07:20] VITALS: RESP 20
[2016-11-14] MEDS: IPRATROPIUM-ALBUTEROL 3 ML NEB INHALATION SCH ×3 (08:28→15:06)
[2016-11-14] MEDS: IBUPROFEN 400 MG TAB PO SCH ×2 (08:31→15:04)
[2016-11-14] MEDS: MORPHINE SULFATE IR 15 MG TABLET PO SCH (08:32)
[2016-11-14] MEDS: NICOTINE 14MG/24HR PATCH TRANSDERM SCH (08:34)
[2016-11-14] MEDS: RIFAMPIN 300 MG CAP PO SCH (08:34)
[2016-11-14] MEDS: ALPRAZolam 0.5 MG TAB PO PRN (09:04)
[2016-11-14] MEDS ORDERED: LIDOCAINE 2% INJ 20 MG/ML IV ONE (09:40)
[2016-11-14] MEDS: SODIUM CHLORIDE 0.9% 1,000 ML IV SCH (12:35)
--- NOTE | 2016-11-14 12:46 | IR ---
PICC LINE PLACEMENT: HISTORY: Infection requiring long-term antibiotic therapy PROCEDURE: Ultrasound and fluoroscopic guidance of PICC line placement. COMPLICATIONS: None ANESTHESIA: 1. 1% Lidocaine locally. FINDINGS/TECHNIQUE: The procedure was explained to the patient. The risks, complications, benefits and alternatives were discussed and any questions were answered. Informed consent was obtained. The patient was placed supine on the fluoroscopic table and prepped and draped in the usual sterile fash ion. Utilizing a 21 gauge needle and sonographic and fluoroscopic guidance, access in the right bas ilic vein was achieved and there is placement of a 0.018 guidewire. The vein is patent. A 4-F sheat h was placed over the guidewire. The guidewire and dilator were removed and a 4-F. PICC line was aguilar xavier through the sheath with the tip at the level of the SVC. The sheath was removed, the catheter wa s flushed and sutured into position. The patient was stable throughout the procedure and remained st able upon discharge from the Department of Radiology. The vein puncture was patent under ultrasound. A hendrix scale image was obtained to document patency of the vein punctured. All elements of the maximal barrier technique were utilized. FLUOROSCOPY TIME: 1.3 minutes IMPRESSION: Successful PICC line placement under ultrasound and fluoroscopic guidance.
[2016-11-14 15:05] VITALS: BP 134/80; PULSE 82; TEMP 99.2
--- NOTE | 2016-11-14 18:54 | PN ---
DATE OF SERVICE: 11/14/2016 REASON FOR FOLLOWUP: MSSA bacteremia. INTERVAL HISTORY: The patient is afebrile. She is feeling better, breathing comfortably. Denies significant chest pain or shortness of breath or cough. No abdominal pain or any diarrhea. On examination, blood pressure is 119/79 with a pulse of 83, temperature 99.4. She is 93% on room air. General description is a middle-aged female up in the bed in no distress. RESPIRATORY SYSTEM: Unlabored breathing. Clear to auscultation anteriorly. HEART: S1, S2. Regular rate and rhythm. ABDOMEN: Soft. No tenderness. LABS: No new labs obtained today. Blood cultures from 11/10 and 11/11 have been negative. DIAGNOSTIC IMPRESSION AND PLAN: Patient with MSSA bacteremia persistently for almost a week, with blood cultures finally negative. Patient did have a PICC line. Will try to arrange for cefazolin 2 grams q.8 for another 5 to 6 weeks along with oral rifampin for 4 weeks with outpatient followup. Once antibiotics are arranged, she is stable to go home from ID standpoint. HUSSAIN
--- NOTE | 2016-12-11 09:58 | DS ---
DATE OF ADMISSION: 11/03/2016 DATE OF DISCHARGE: 11/14/2016 DISCHARGE DIAGNOSES: 1. Methicillin-sensitive Staphylococcus aureus septicemia. 2. Sepsis secondary to pneumonia and cavitating lesions in the lung. 3. Acute kidney injury secondary to volume depletion, improved now. 4. Bipolar disorder. 5. Ongoing tobacco use. 6. IVDU active. 7. Right thigh myositis as per MRI. HOSPITAL COURSE: Ms. Zamarripa is a 41-year-old female with known history of IVDU admitted to the hospital with complaints of abdominal pain, nausea, vomiting and watery diarrhea and intermittent fever and chills. Patient was found to have CT evidence of cavitating lesion in the lung and blood cultures have been positive for Staph aureus, found to be MSSA. The patient has been having persistent MSSA and patient underwent CALLIE to rule out any vegetation, which is negative. Patient also found to have right thigh myositis as per MRI report. The patient was seen by ID and patient cultures have been persistently positive. The patient was continued on cefazolin as per ID recommendations. Blood cultures have been negative after 11/07/2016. ( ) with cefazolin and Rifampin p.o. and recommended to followup in the ID Clinic. Otherwise, the patient is clinically stable and hemodynamically stable as well and he is being discharged home with IV antibiotics. Home with home health care services. Patient was counseled extensively for IV drug abuse and recommend to stop using IV drugs. The patient verbalized understanding and otherwise patient needed to be discharged home with IV antibiotics at home. Patient also had right thigh pain, much improved now. DISCHARGE PHYSICAL EXAMINATION: A 41-year-old female lying in bed, comfortable. Awake, alert, oriented x3. Appears to be in no apparent distress. VITALS: Blood pressure is 134/80. Pulse is 82. Respirations 20. Temperature afebrile. Pulse ox 95% on room air. LABORATORY DATA: Reviewed. DISCHARGE PHYSICAL EXAMINATION: Done. DISCHARGE PHYSICAL EXAMINATION: HEENT: Atraumatic, normocephalic. Neck is supple. No JVD. CVS EXAM: S1 and S2 heard. No murmurs, no gallop, no rub. LUNGS: Bilateral air entry is present. No wheezing, no crackles, nonlabored breathing. ABDOMEN: Soft, nontender. Bowel sounds are present. 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 No focal deficits. EXTREMITIES: No edema. Pulses palpable bilaterally. No clubbing or cyanosis. PSYCHIATRY: Cooperative. LABORATORY DATA: WBC 12.0, hemoglobin 11.4, platelets 547. Sodium 139, potassium 3.7, chloride 106, bicarb 27, BUN 7, creatinine 0.78. Albumin 1.9. Discharge medications include: 1. Xanax 1 mg p.o. daily p.r.n. for anxiety. 2. Ventolin HFA 1 to 2 puffs q,6 hourly p.r.n. for short of breath. 3. Morphine sulfate, MSIR, 30 mg p.o. q.a.m. 4. Seroquel 300 mg p.o. at bedtime. 5. Rifampin 300 mg p.o. b.i.d. 6. Cefazolin 2 grams q.8 hourly. home health care and IV antibiotics. Follow with Dr. Malik on 11/21/2016 at [address] Follow with Dr[address] Jamar Kemp in one week. [facility]
== END 2016-11-14 16:34 | disposition home health service (06) | DRG 871 ==
LOC: EC 20:36 → 6SEL 21:59 → 4MS4W 11-05 11:18
PROVIDERS: ADMIT Internal Medicine; ATTEND Internal Medicine
PROC: 02HV33Z Insertion of Infusion Device into Superior Vena Cava, Percutaneous Approach (ICD-10-PCS; principal; 2016-11-07 09:00)
PROC: 02HV33Z Insertion of Infusion Device into Superior Vena Cava, Percutaneous Approach (ICD-10-PCS; 2016-11-14 09:19)
DX: A41.01 Sepsis due to Methicillin susceptible Staphylococcus aureus (principal); J18.9 Pneumonia, unspecified organism; N17.9 Acute kidney failure, unspecified; E83.42 Hypomagnesemia; E86.0 Dehydration; F17.200 Nicotine dependence, unspecified, uncomplicated; F31.9 Bipolar disorder, unspecified; M60.9 Myositis, unspecified; G89.29 Other chronic pain; M54.9 Dorsalgia, unspecified; R11.2 Nausea with vomiting, unspecified; R19.7 Diarrhea, unspecified; J44.9 Chronic obstructive pulmonary disease, unspecified; E87.6 Hypokalemia; R07.89 Other chest pain; E78.5 Hyperlipidemia, unspecified; Z79.899 Other long term (current) drug therapy; Z86.14 Personal history of Methicillin resistant Staphylococcus aureus infection; Z88.8 Allergy status to other drugs, medicaments and biological substances
CPT/HCPCS: 36415; 36569; 71010; 71020; 71250; 72129; 72132; 73502; 76937; 77001; 78582; 78806; 80048; 80053; 80202; 81001; 82550; 82553; 83036; 83605; 83735; 84132; 84484; 85025; 85379; 85610; 85730; 87040; 87070; 87077; 87086; 87186; 87205; 93005; 93306; 93312; 93320; 93325; 94640; 96361; 96365; 96366; 96368; 96375; 96376; 99291

== ENCOUNTER → 2016-12-28 | Outpatient (CLI) | payer MEDICARE, OTHER | END | disposition home or self-care (01) | LOC: LABWHC1 13:05 | PROVIDERS: ATTEND Internal Medicine Infectious Disease | DX: B95.62 Methicillin resistant Staphylococcus aureus infection as the cause of diseases classified elsewhere (principal); R78.81 Bacteremia | CPT/HCPCS: 36415; 87040 ==

== ENCOUNTER → 2017-01-06 | Outpatient (CLI) | payer MEDICARE, OTHER ==
--- NOTE | 2017-01-06 14:52 | CT ---
EXAMINATION TYPE: CT chest wo con DATE OF EXAM: 01/06/2017 COMPARISON: Prior CT chest 11/06/2016 HISTORY: mid chest pain, recent pneumonia CT DLP: 373 mGycm. Automated Exposure Control for Dose Reduction was Utilized. TECHNIQUE: CT scan of the thorax is performed without IV contrast. FINDINGS: Lack of contrast could compromise sensitivity. LUNGS: Multiple pulmonary nodules present, there is improvement in the left upper lobe nodule which i s nearly resolved on axial image 12. Axial image 27 also shows marked reduction in the size, previous nodule measured 3.1 cm which now measures 1.3 mm. There is improvement in pleural effusion bilateral ly. Right middle lobe lesion has decreased in size to 1 cm from 2.4 cm. The cavitary appearance is al so improved of these nodules. Right middle lobe lesion on axial image 26 now measures 14 mm and on pr ior measured 3.1 cm. Paraseptal emphysematous changes are present with centrilobular emphysema. Ther e is no pleural effusion or pneumothorax seen. The tracheobronchial tree is patent. MEDIASTINUM: Lack of IV contrast is noted to limit evaluation for mediastinal and especially hilar ad enopathy. There are no definitive greater than 1 cm hilar or mediastinal lymph nodes. No cardiomega ly or pericardial effusion is seen. OTHER: No additional significant abnormality is seen. IMPRESSION: Marked improvement in patient's parenchymal lung nodules seen on previous exam.
== END | disposition home or self-care (01) ==
LOC: RADCTMAIN 13:40
PROVIDERS: ATTEND Internal Medicine Infectious Disease
DX: R91.8 Other nonspecific abnormal finding of lung field (principal); Z87.01 Personal history of pneumonia (recurrent)
CPT/HCPCS: 71250

== ENCOUNTER → 2017-02-03 | Outpatient (CLI) | payer MEDICARE, OTHER ==
--- NOTE | 2017-02-03 14:55 | CT ---
EXAMINATION TYPE: CT chest wo con DATE OF EXAM: 02/03/2017 COMPARISON: 01/06/2017 HISTORY: Pulmonary nodule CT DLP: 130.20 mGycm. Automated Exposure Control for Dose Reduction was Utilized. TECHNIQUE: CT scan of the thorax is performed without IV contrast. FINDINGS: LUNGS: Emphysematous changes are noted. Pleural-based density posteriorly in the right upper lobe jm ears to be likely postinflammatory and is stable. Nodularity seen within the right upper lobe which i s somewhat vague is stable appearance in size and morphology. Smaller more peripheral 4 mm nodule als o stable. Nodularity seen in the left upper lobe which previously measured 1.3 cm there is reduced in size now measuring 5 mm. Subsegmental linear changes seen in the right upper lobe somewhat nodular on the prev ious exam appears reduced in size now measuring a thickness of 3 mm and previously measuring 6 mm. Kelsey bsegmental changes posterior segment right lower lobe also appears to be improved. No pleural effusion or pneumothorax.. MEDIASTINUM: Lack of IV contrast is noted to limit evaluation for mediastinal and especially hilar ad enopathy. There are no definitive greater than 1 cm hilar or mediastinal lymph nodes. No cardiomega ly or pericardial effusion is seen. OTHER: No additional significant abnormality is seen. Hypertrophic and degenerative change of the sp ine noted. IMPRESSION: 1. There is continued mild improvement in areas of bilateral pulmonary nodularity compared to the pre vious exam.
== END | disposition home or self-care (01) ==
LOC: RADCTMAIN 13:03
PROVIDERS: ATTEND Internal Medicine Infectious Disease
DX: R91.1 Solitary pulmonary nodule (principal)
CPT/HCPCS: 71250

== ENCOUNTER → 2017-11-12 | Outpatient (CLI) | payer MEDICARE, OTHER ==
--- NOTE | 2017-11-12 10:37 | XR ---
EXAMINATION TYPE: XR chest 2V DATE OF EXAM: 11/12/2017 COMPARISON: CT chest February 03, 2017. Prior chest x-ray November 05, 2016 HISTORY: Tobacco use TECHNIQUE: Frontal and lateral views of the chest are obtained. FINDINGS: Mild underlying emphysematous change with mild scattered fibrosis or scarring is identified seen better on CT. There is no suspicious new focal air space opacity, pleural effusion, or pneumoth orax seen. The cardiac silhouette size is within normal limits. The osseous structures are intact. IMPRESSION: No acute cardiopulmonary process currently.
--- NOTE | 2017-11-12 10:39 | XR ---
EXAMINATION TYPE: XR lumbosacral spine min 4V DATE OF EXAM: 11/12/2017 CLINICAL HISTORY: Chronic low back pain. TECHNIQUE: Frontal, lateral, and oblique images of the lumbar spine are obtained. COMPARISON: CT lumbar spine November 08, 2016 FINDINGS: There are 5 lumbar type vertebral bodies redemonstrated. The lumbar spine redemonstrates satisfactory alignment without evidence of acute fracture or dislocation. Vertebral body heights and disk space heights remain within normal limits. The oblique images appear within normal limits. No significant spurring is seen. The overlying soft tissue appears unremarkable. IMPRESSION: Unremarkable study. No significant change from CT.
--- NOTE | 2017-11-12 10:40 | XR ---
EXAMINATION TYPE: XR thoracic spine complete DATE OF EXAM: 11/12/2017 CLINICAL HISTORY: Chronic back pain TECHNIQUE: Frontal, lateral, and swimmer's view of thoracic spine are obtained. COMPARISON: CT thoracic and lumbar spine November 08, 2016 FINDINGS: Thoracic spine redemonstrates slight S-shaped scoliotic curvature in the upper to midthorac ic spine without evidence of acute fracture or dislocation. Vertebral body heights and disc space he ights remain preserved. Minimal multilevel anterior spurring is seen. Visualized ribs are unremarkabl e bilaterally. IMPRESSION: As above, no significant change from prior CT.
== END | disposition home or self-care (01) ==
LOC: RADXRMAIN 09:56
PROVIDERS: ATTEND Internal Medicine
DX: M54.5 Low back pain (principal); M54.6 Pain in thoracic spine; Z72.0 Tobacco use
CPT/HCPCS: 71046; 72072; 72110

== ENCOUNTER → 2018-06-15 | Outpatient (CLI) | payer MEDICARE, OTHER ==
--- NOTE | 2018-06-15 15:37 | XR ---
EXAMINATION TYPE: XR chest 2V DATE OF EXAM: 06/15/2018 COMPARISON: 11/12/2017 INDICATION: Tobacco use TECHNIQUE: Frontal and lateral views of the chest are obtained. FINDINGS: The heart size is normal. The pulmonary vasculature is normal. The lungs are clear. IMPRESSION: 1. No acute pulmonary process.
--- NOTE | 2018-06-15 15:38 | XR ---
EXAMINATION TYPE: XR abdomen 2V DATE OF EXAM: 06/15/2018 COMPARISON: None INDICATION: Tobacco use, abdominal pain TECHNIQUE: 2 view abdomen frontal projection upright view and supine view FINDINGS: There is a normal bowel gas pattern. Mild fecal debris is through the colon. No suspicious air-fluid levels or differential air-fluid levels are present. No free air under the di aphragm is evident. Psoas margins are not well visualized. No mass effect is evident. No organomegaly is present. IMPRESSION: 1. Nonspecific abdomen.
== END ==
LOC: RADXRMAIN 14:39
PROVIDERS: ATTEND Internal Medicine
DX: R10.9 Unspecified abdominal pain (principal); Z72.0 Tobacco use
CPT/HCPCS: 71046; 74019

== ENCOUNTER → 2018-07-03 | Outpatient (CLI) | payer MEDICARE, OTHER ==
--- NOTE | 2018-07-03 09:43 | US ---
EXAMINATION TYPE: US abdomen complete DATE OF EXAM: 07/03/2018 COMPARISON: NONE CLINICAL HISTORY: Abdominal pain R10.9. Intermittent abdomen pain x couple months, bloating EXAM MEASUREMENTS: Liver Length: 14.9 cm Gallbladder Wall: 0.2 cm CBD: 0.6 cm Spleen: 10.1 cm Right Kidney: 10.1 x 4.2 x 4.6 cm Left Kidney: 10.1 x 4.9 x 4.5 cm Pancreas: Visualized portions within normal limits. Pancreatic tail obscured by bowel gas. Liver: mildly course echotexture Gallbladder: wnl Evidence for sonographic Park's sign: yes CBD: borderline dilated at 0.6cm Spleen: wnl Right Kidney: wnl Left Kidney: wnl Upper IVC: wnl Abd Aorta: wnl IMPRESSION: 1. Echo pattern of the Liver is nonspecific be seen with mild fatty infiltration, hepatitis or diffus e hepatocellular disease. 2. The common bile duct measures 6 mm is at the upper limits of normal patient's age. No definite gal lstones are seen. Distal CBD abnormality not entirely excluded. Correlate with MRCP or ERCP as clinic ally warranted.
== END | disposition home or self-care (01) ==
LOC: RADUSWWP 08:56
PROVIDERS: ATTEND Internal Medicine
DX: K76.0 Fatty (change of) liver, not elsewhere classified (principal)
CPT/HCPCS: 76700

== ENCOUNTER → 2020-10-03 | Outpatient (CLI) | payer MEDICARE, OTHER ==
[2020-10-03 13:30] VITALS: BP 116/75; PULSE 83; RESP 18; TEMP 98.9
--- NOTE | 2020-10-03 14:26 | P.HPOB ---
History of Present Illness H&P Date: 10/03/20 Chief Complaint: The patient is here for her routine gynecologic exam. This is a 44-year-old 011 with an LMP of 09/26/2020. She is here to establish with this office. It has been about 14 years since her last pelvic exam. She currently is not seeing anybody at this time and has not been sexually active for approximately 7 months. She states during the past month she has had menstrual flow that has stopped and started 3 times. Prior to the past month, menstrual periods were regular every month. Review of Systems The patient has gained about 25 pounds over the last year. She attributes this to the Seroquel that she has been taking. She denies respiratory, cardiac, or G.I. problems. Past Medical History Past Medical History: Asthma Additional Past Medical History / Comment(s): History of narcotic pain medication addiction. 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 History of Any Multi-Drug Resistant Organisms: MRSA Date of last positivie culture/infection: 03/2016 (patient states culture done at [facility]) MDRO Source:: posterior right knee Past Surgical History: Adenoidectomy, Orthopedic Surgery, Tonsillectomy Additional Past Surgical History / Comment(s): D&C,Right knee surgery, TUBES IN EARS. Past Psychological History: Anxiety, Bipolar, Depression, Schizophrenia Additional Psychological History / Comment(s): Narcotic pain medication addiction. Smoking Status: Current every day smoker (1 pack per day) Past Alcohol Use History: None Reported Past Drug Use History: Marijuana, Opiates Additional Drug Use History / Comment(s): She is treated with Suboxone for narcotic pain medication addiction. She denies current narcotic use. Additional History: She is single and is not seeing anybody at this time. She has not been sexually active since 2019. She does not work outside the home. - Past Family History Father Family Medical History: Myocardial Infarction ([place]) Additional Family Medical History / Comment(s): from [place]. Mother Additional Family Medical History / Comment(s): Cerebral palsy. She of Cov[place]. Brother(s) Family Medical History: Diabetes Mellitus, Hypertension Medications and Allergies Home Medications Medication Instructions Recorded Confirmed Type ALPRAZolam [Xanax] 1 mg PO DAILY PRN 11/03/16 10/03/20 History Albuterol Inhaler (Mhu) [Ventolin 1 - 2 puff INHALATION RT-QID PRN 11/03/16 10/03/20 History Hfa Inhaler (Mhu)] QUEtiapine FUMARATE [SEROquel] 300 mg PO HS 11/03/16 10/03/20 History Buprenorphine HCl/Naloxone HCl 1 each SL BID 10/03/20 10/03/20 History [Suboxone 4 mg-1 mg Sl Film] Ibuprofen [Motrin] 800 mg PO Q8H PRN 10/03/20 10/03/20 History Allergies Allergy/AdvReac Type Severity Reaction Status Date / Time imipramine [From Tofranil] Allergy Rash/Hives Verified 10/03/20 13:21 Exam Vital Signs Temp Pulse Resp BP Pulse Ox 10/03/20 13:24 98.9 F 83 18 116/75 98 Intake and Output 10/02/20 10/03/20 10/03/20 22:59 06:59 14:59 Other: Weight 78.471 kg Height 5 feet 4 inches, weight 173 pounds, BMI 29.7. This is a well-developed well-nourished white female who is alert and oriented times 3 in no acute distress. HEENT: Within normal limits. NECK: Supple without mass or thyromegaly. CHEST AND LUNGS: Clear to auscultation. HEART: Regular rate and rhythm. BREASTS: Are without mass or discharge. AXILLARY EXAM: Negative for adenopathy. BACK: Negative for CVA tenderness. ABDOMEN: Soft, nontender, without palpable masses. PELVIC EXAM: Normal external genitalia. Cervix and vagina appear normal. There is no unusual discharge. There is no evidence of prolapse. The uterus is midposition, nongravid size and nontender. There are no palpable adnexal masses or tenderness. RECTAL EXAM: negative for mass or tenderness and is negative for occult blood. EXTREMITIES: Nontender. IMPRESSION: 1. 44-year-old perimenopausal female with recent menstrual irregularity during the past month with normal gynecologic exam. 2. The patient is requesting STD screening. PLAN: 1. Pap smear cotest was performed. 2. Self breast awareness was discussed with the patient. 3. Screening mammogram was recommended and the order slip was given to the patient for this. 4. The patient will keep a menstrual calendar and call if she is having menstrual problems. 5. STD screening will include GC and chlamydia testing which was obtained from the cervix. Trichomonas antigen which was obtained from the vagina. Blood testing for STDs will be done and will include HIV, RPR, hepatitis B surface antigen, and hepatitis C antibody. The order slip for the blood tests was given to the patient. 6. STD prevention was discussed. I have stressed the importance of limiting sexual partners and I have recommended that she use condoms if she is sexually active. 7.Osteoporosis prevention was discussed. I have stressed the importance of adequate calcium, vitamin D and regular exercise. Recommended amounts of calcium and vitamin D were also discussed. 8. She was advised to return in one year for her annual well woman exam.
[2020-10-04 00:17] LABS: Hepatitis B Surface Antigen Non-Reactive (Non-Reactive); Hepatitis C IgG Antibody Non-Reactive (Non-Reactive)
[2020-10-04 14:28] LABS: C. trachomatis,PCR Negative (Neg,Equiv); Chlamydia trachomatis Source Cervix; N. gonorrhoeae,PCR Negative (Neg,Equiv); Neisseria Source Cervix
[2020-10-04 17:23] LABS: HIV 2 AB Non-Reactive (Non-Reactive); HIV AB P24 Non-Reactive (Non-Reactive); HIV P24 AG Non-Reactive (Non-Reactive)
--- NOTE | 2020-10-11 10:37 | P.PN ---
Progress Note - Text Progress Note Date: 10/11/20 OUTPATIENT FOLLOW-UP NOTE TEST(S)/RESULTS: Test results from 10/03/2020 include negative Pap smear, negative high risk HPV testing, negative GC, negative chlamydia, negative Trichomonas, negative HIV, negative syphilis screen, negative hepatitis B surface antigen and negative hepatitis C antibody. METHOD OF NOTIFICATION: The patient was notified by phone. PATIENT COMMENTS: She is happy to hear these results. She states she will be doing the mammogram as recommended in the near future. DIAGNOSIS: Negative Pap smear cotest and negative STD screening as above. DISCUSSION: STD prevention was discussed. I have stressed the importance of limiting sexual partners and I have recommended condom use if she is sexually active. PLAN: Mammogram is to be done. She was advised to return in one year for her annual well woman exam.
== END ==
LOC: WWCWWP 13:03
PROVIDERS: ATTEND Obstetrics & Gynecology
DX: Z01.419 Encounter for gynecological examination (general) (routine) without abnormal findings (principal); N92.6 Irregular menstruation, unspecified; J45.909 Unspecified asthma, uncomplicated; F31.9 Bipolar disorder, unspecified; F41.9 Anxiety disorder, unspecified; F20.9 Schizophrenia, unspecified; F17.210 Nicotine dependence, cigarettes, uncomplicated; Z88.8 Allergy status to other drugs, medicaments and biological substances; Z11.3 Encounter for screening for infections with a predominantly sexual mode of transmission
CPT/HCPCS: 86780; 86803; 87340; 87390; 87491; 87591; 87808

== ENCOUNTER 2020-10-28 14:24 | Emergency (ER) | payer MEDICARE, OTHER ==
--- NOTE | 2020-10-28 15:22 | ED ---
General Adult HPI - General Chief complaint: Shortness of Breath Stated complaint: SOB, low back pain Time Seen by Provider: 10/28/20 14:50 Source: patient, RN notes reviewed Mode of arrival: ambulatory Limitations: no limitations - History of Present Illness Initial comments: Patient is a pleasant 4-year-old female presenting to the emergency department with difficulty breathing. Onset of symptoms was 2 weeks ago. Symptoms have progressed since that time. Patient is a smoker. Patient does have cough. Patient has chest congestion however cough is non productive. Patient had similar symptoms a couple years ago associated with bacterial pneumonia. Patient did have an episode less than a week ago with coughing and breathing problems or she believes she passed out. Patient did strike the left lower back/flank on a chair. Patient has been having some discomfort since that time in that area. Patient denies history of chronic back problems. - Related Data Home Medications Medication Instructions Recorded Confirmed QUEtiapine FUMARATE [SEROquel] 300 mg PO HS 11/03/16 10/28/20 Buprenorphine HCl/Naloxone HCl 1 film SL BID 10/03/20 10/28/20 [Suboxone 4 mg-1 mg Sl Film] Ibuprofen [Motrin] 800 mg PO Q8H PRN 10/03/20 10/28/20 Albuterol Sulfate [Ventolin HFA] 1 - 2 puff INHALATION RT-Q6H PRN 10/28/20 10/28/20 Previous Rx's Medication Instructions Recorded Azithromycin [Zithromax Z-pack (6 250 mg PO DIRECTED #6 tab 10/28/20 tabs)] predniSONE [Deltasone] 20 mg PO BID #10 tab 10/28/20 Allergies Allergy/AdvReac Type Severity Reaction Status Date / Time imipramine [From Tofranil] Allergy Rash/Hives Verified 10/28/20 15:31 Review of Systems ROS Statement: Those systems with pertinent positive or pertinent negative responses have been documented in the HPI. ROS Other: All systems not noted in ROS Statement are negative. Constitutional: Denies: fever Eyes: Denies: eye pain ENT: Denies: ear pain Respiratory: Reports: cough, dyspnea Cardiovascular: Denies: chest pain Endocrine: Denies: fatigue Gastrointestinal: Denies: abdominal pain Genitourinary: Denies: dysuria Musculoskeletal: Reports: as per HPI Skin: Denies: rash Neurological: Denies: headache, weakness, confusion Past Medical History Past Medical History: Asthma Additional Past Medical History / Comment(s): History of narcotic pain medic ation addiction. 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 History of Any Multi-Drug Resistant Organisms: MRSA Date of last positivie culture/infection: 03/2016 (patient states culture done at [facility]) MDRO Source:: posterior right knee Past Surgical History: Adenoidectomy, Orthopedic Surgery, Tonsillectomy Additional Past Surgical History / Comment(s): D&C,Right knee surgery, TUBES IN EARS. Past Psychological History: Anxiety, Bipolar, Depression, Schizophrenia Smoking Status: Current every day smoker Past Alcohol Use History: None Reported Past Drug Use History: Marijuana - Past Family History Father Family Medical History: Myocardial Infarction ([place]) Additional Family Medical History / Comment(s): from [place]. Mother Additional Family Medical History / Comment(s): Cerebral palsy. She of Covid. Brother(s) Family Medical History: Diabetes Mellitus, Hypertension General Exam Limitations: no limitations General appearance: alert, in no apparent distress Head exam: Present: atraumatic, normocephalic Eye exam: Present: normal appearance Neck exam: Present: normal inspection. Absent: tenderness Respiratory exam: Present: wheezes. Absent: respiratory distress Cardiovascular Exam: Present: regular rate, normal rhythm Expanded Peripheral pulses: 2+: Radial (R), Radial (L), Posterior Tibialis (R), Posterior Tibialis (L) GI/Abdominal exam: Present: soft. Absent: tenderness Extremities exam: Present: normal inspection. Absent: pedal edema, calf tenderness Back exam: Present: other (Mild tenderness left lower lateral back/flank. No ecchymosis.) Neurological exam: Present: alert. Absent: motor sensory deficit Psychiatric exam: Present: normal affect, normal mood Skin exam: Present: normal color Course Vital Signs 10/28/20 10/28/20 10/28/20 14:47 15:54 16:06 Temperature 98.1 F Pulse Rate 77 80 Respiratory 16 20 20 Rate Blood Pressure 124/83 129/83 O2 Sat by Pulse 94 L 98 Oximetry 10/28/20 10/28/20 16:31 16:44 Temperature Pulse Rate 76 84 Respiratory 16 Rate Blood Pressure 129/88 O2 Sat by Pulse 100 Oximetry EKG Findings - EKG Comments: EKG Findings:: No sinus rhythm with rate of 86. W[place] 134. QRS 82. QT 274. QTC 447. Normal axis. Normal QRS. No acute ST change. Medical Decision Making - Medical Decision Making Patient reevaluated and resting comfortably in bed. No respiratory distress. Patient and family updated on results and need for follow-up. - Lab Data Result diagrams: 10/28/20 15:40 10/28/20 15:40 Lab Results 10/28/20 10/28/20 10/28/20 Range/Units 15:40 15:40 15:40 WBC 8.5 (3.8-10.6) k/uL RBC 4.19 (3.80-5.40) m/uL Hgb 13.4 (11.4-16.0) gm/dL Hct 39.4 (34.0-46.0) % MCV 93.9 (80.0-100.0) fL MCH 32.0 (25.0-35.0) pg MCHC 34.0 (31.0-37.0) g/dL RDW 13.6 (11.5-15.5) % Plt Count 283 (150-450) k/uL MPV 7.2 Neutrophils % 69 % Lymphocytes % 20 % Monocytes % 4 % Eosinophils % 6 % Basophils % 1 % Neutrophils # 5.8 (1.3-7.7) k/uL Lymphocytes # 1.7 (1.0-4.8) k/uL Monocytes # 0.3 (0-1.0) k/uL Eosinophils # 0.5 (0-0.7) k/uL Basophils # 0.1 (0-0.2) k/uL PT 9.7 (9.0-12.0) sec INR 0.9 (<1.2) APTT 27.0 (22.0-30.0) sec Sodium 138 (137-145) mmol/L Potassium 4.7 (3.5-5.1) mmol/L Chloride 108 H (98-107) mmol/L Carbon Dioxide 25 (22-30) mmol/L Anion Gap 5 mmol/L BUN 14 (7-17) mg/dL Creatinine 0.68 (0.52-1.04) mg/dL Est GFR (CKD-EPI)AfAm >90 (>60 ml/min/1.73 sqM) Est GFR (CKD-EPI)NonAf >90 (>60 ml/min/1.73 sqM) Glucose 103 H (74-99) mg/dL Calcium 9.5 (8.4-10.2) mg/dL Total Bilirubin 0.2 (0.2-1.3) mg/dL AST 97 H (14-36) U/L ALT 95 H (4-34) U/L Alkaline Phosphatase 88 (38-126) U/L Troponin I (0.000-0.034) ng/mL Total Protein 6.9 (6.3-8.2) g/dL Albumin 3.9 (3.5-5.0) g/dL Urine Color Urine Appearance (Clear) Urine pH (5.0-8.0) Ur Specific [place] (1.001-1.035) Urine Protein (Negative) Urine Glucose (UA) (Negative) Urine Ketones (Negative) Urine Blood (Negative) Urine Nitrite (Negative) Urine Bilirubin (Negative) Urine Urobilinogen (<2.0) mg/dL Ur Leukocyte Esterase (Negative) Urine RBC (0-5) /hpf Urine WBC (0-5) /hpf Ur Squamous Epith Cells (0-4) /hpf Urine Bacteria (None) /hpf Urine Mucus (None) /hpf 10/28/20 10/28/20 Range/Units 15:40 15:53 WBC (3.8-10.6) k/uL RBC (3.80-5.40) m/uL Hgb (11.4-16.0) gm/dL Hct (34.0-46.0) % MCV (80.0-100.0) fL MCH (25.0-35.0) pg MCHC (31.0-37.0) g/dL RDW (11.5-15.5) % Plt Count (150-450) k/uL MPV Neutrophils % % Lymphocytes % % Monocytes % % Eosinophils % % Basophils % % Neutrophils # (1.3-7.7) k/uL Lymphocytes # (1.0-4.8) k/uL Monocytes # (0-1.0) k/uL Eosinophils # (0-0.7) k/uL Basophils # (0-0.2) k/uL PT (9.0-12.0) sec INR (<1.2) APTT (22.0-30.0) sec Sodium (137-145) mmol/L Potassium (3.5-5.1) mmol/L Chloride (98-107) mmol/L Carbon Dioxide (22-30) mmol/L Anion Gap mmol/L BUN (7-17) mg/dL Creatinine (0.52-1.04) mg/dL Est GFR (CKD-EPI)AfAm (>60 ml/min/1.73 sqM) Est GFR (CKD-EPI)NonAf (>60 ml/min/1.73 sqM) Glucose (74-99) mg/dL Calcium (8.4-10.2) mg/dL Total Bilirubin (0.2-1.3) mg/dL AST (14-36) U/L ALT (4-34) U/L Alkaline Phosphatase (38-126) U/L Troponin I <0.012 (0.000-0.034) ng/mL Total Protein (6.3-8.2) g/dL Albumin (3.5-5.0) g/dL Urine Color Yellow Urine Appearance Cloudy H (Clear) Urine pH 6.0 (5.0-8.0) Ur Specific [place] 1.013 (1.001-1.035) Urine Protein Negative (Negative) Urine Glucose (UA) Negative (Negative) Urine Ketones Negative (Negative) Urine Blood Negative (Negative) Urine Nitrite Positive H (Negative) Urine Bilirubin Negative (Negative) Urine Urobilinogen <2.0 (<2.0) mg/dL Ur Leukocyte Esterase Moderate H (Negative) Urine RBC <1 (0-5) /hpf Urine WBC 16 H (0-5) /hpf Ur Squamous Epith Cells 2 (0-4) /hpf Urine Bacteria Occasional H (None) /hpf Urine Mucus Rare H (None) /hpf - Radiology Data Radiology results: report reviewed (Computed tomography scan of abdomen and pelvis shows no acute abnormality. CT angiogram of the chest shows emphysema. Lymphadenopathy. No pulmonary mass. No filling defects.) Disposition Clinical Impression: COPD exacerbation, Back pain, Syncopal episodes Disposition: HOME SELF-CARE Condition: Stable Instructions (If sedation given, give patient instructions): COPD (Chronic Obstructive Pulmonary Disease) (ED) Additional Instructions: Please follow-up with your primary care physician in the next day or 2 for recheck. Return for difficulty breathing, fevers, worsening symptoms or other concerns. Prescription has been sent to your pharmacy. Prescriptions: predniSONE [Deltasone] 20 mg PO BID #10 tab Azithromycin [Zithromax Z-pack (6 tabs)] 250 mg PO DIRECTED #6 tab Is patient prescribed a controlled substance at d/c from ED?: No Referrals: Jamar Kemp DO [Primary Care Provider] - 1-2 days Time of Disposition: 17:35
[2020-10-28] MEDS: SODIUM CHLORIDE 0.9% 1,000 ML IV STA (15:46)
[2020-10-28] MEDS: methylPREDNISolone SOD SUCCI 125 MG/2 ML VIAL IV STA (15:48)
[2020-10-28] MEDS: MORPHINE SULFATE 4 MG/ML SYRINGE IVP STA (15:49)
[2020-10-28 15:50] LABS: Basophils # (A) 0.1 k/uL (0-0.2); Basophils % (A) 1 %; Eosinophils # (A) 0.5 k/uL (0-0.7); Eosinophils % (A) 6 %; HCT 39.4 % (34.0-46.0); HGB 13.4 gm/dL (11.4-16.0); Lymphocytes # (A) 1.7 k/uL (1.0-4.8); Lymphocytes % (A) 20 %; MCV 93.9 fL (80.0-100.0); Mean Platelet Volume 7.2; Monocytes # (A) 0.3 k/uL (0-1.0); Monocytes % (A) 4 %; Neutrophils # (A) 5.8 k/uL (1.3-7.7); Neutrophils % (A) 69 %; Platelet Count 283 k/uL (150-450); RBC 4.19 m/uL (3.80-5.40); RDW 13.6 % (11.5-15.5); WBC 8.5 k/uL (3.8-10.6)
[2020-10-28 15:58] LABS: INR 0.9 (<1.2); Prothrombin Time 9.7 sec (9.0-12.0)
[2020-10-28 15:59] LABS: Potassium 4.7 mmol/L (3.5-5.1)
[2020-10-28 16:00] LABS: ALT 95 U/L (4-34); AST 97 U/L (14-36); African American GFR (CKD) >90 (>60 ml/min/1.73 sqM); Albumin 3.9 g/dL (3.5-5.0); Alkaline Phosphatase 88 U/L (38-126); Anion Gap 5 mmol/L; Blood Urea Nitrogen 14 mg/dL (7-17); Calcium 9.5 mg/dL (8.4-10.2); Carbon Dioxide 25 mmol/L (22-30); Chloride 108 mmol/L (98-107); Glucose 103 mg/dL (74-99); Non-African American GFR(CKD) >90 (>60 ml/min/1.73 sqM); Sodium 138 mmol/L (137-145); Total Bilirubin 0.2 mg/dL (0.2-1.3); Total Protein 6.9 g/dL (6.3-8.2)
[2020-10-28 16:03] LABS: Appearance,Urine Cloudy (Clear); Bacteria,Urine Occasional /hpf; Bilirubin,Urine Negative (Negative); Blood,Urine Negative (Negative); Color,Urine Yellow; Glucose,Urine (UA) Negative (Negative); Ketones,Urine Negative (Negative); Leukocyte Esterase,Urine Moderate (Negative); Mucus,Urine Rare /hpf; Nitrite,Urine Positive (Negative); Protein,Urine Negative (Negative); RBC,Urine <1 /hpf (0-5); Specific Gravity,Urine 1.013 (1.001-1.035); Squamous Epithelial Cell,Urine 2 /hpf (0-4); Urobilinogen,Urine <2.0 mg/dL (<2.0); WBC,Urine 16 /hpf (0-5)
[2020-10-28] MEDS: IPRATROPIUM-ALBUTEROL 3 ML NEB INHALATION STA (16:31)
--- NOTE | 2020-10-28 16:41 | CT ---
EXAMINATION TYPE: CT angio chest DATE OF EXAM: 10/28/2020 COMPARISON: None HISTORY: Shortness of breath and abdominal pain CT DLP: 1502.2 mGycm Automated exposure control for dose reduction was used. CONTRAST: Performed with IV Contrast, patient injected with 100 mL of Isovue 370. There are 3-D post processed images. There is some diffuse pulmonary emphysema. There is no mediastinal adenopathy. There are bilateral br onchial lymph nodes that measure up to 1.5 cm. Heart size is normal. There is no pericardial effusion . Thoracic aorta is intact. There is no evidence of aneurysm or dissection. There is normal contrast opacification of the pulmonary arteries. There are no filling defects. There is no evidence of a pulmonary mass. The thoracic spine is intact. There is no compression fracture. Sternum is intact. The ribs are intac t. IMPRESSION: Pulmonary emphysema. Bilateral bronchial lymphadenopathy. No suspicious pulmonary mass.
--- NOTE | 2020-10-28 16:48 | CT ---
EXAMINATION TYPE: CT abdomen pelvis w con DATE OF EXAM: 10/28/2020 COMPARISON: None HISTORY: Shortness of breath and abdominal pain CT DLP: 1502.2 mGycm Automated exposure control for dose reduction was used. CONTRAST: Performed with IV Contrast, patient injected with 100 mL of Isovue 370. Images obtained from the diaphragm to the floor the pelvis with IV contrast. Lung bases are clear. There is no pleural effusion. Heart size is normal. There is no pericardial eff usion. Liver spleen stomach pancreas gallbladder appear normal. Bile ducts are not dilated. There is no adrenal mass. Kidneys show satisfactory contrast opacification. There is no hydronephrosi s. There is 2 cm umbilical hernia that contains fat. Ureters are not dilated. There is no retroperito raisa adenopathy. Bladder distends smoothly. There is no inguinal hernia. Uterus is intact. There is n o free fluid in the pelvis. Uterus is anteverted. There is no evidence of pelvic mass. The appendix a ppears normal. Cecum is somewhat medial. There is no mesenteric edema. There is no ascites or free ai r. There is no sign of a bowel obstruction. Lumbar vertebra have normal alignment. There is no compression fracture. The bony pelvis is intact. H ip joints are intact. There is no hip dysplasia. IMPRESSION: Small umbilical hernia contains fat. No acute abnormality in the abdomen pelvis. Normal appendix.
[2020-10-28] MEDS: ACET/COD 300 MG/30 MG STARTER PACK 6 TAB BTL PO STA (18:02)
[2020-10-28 18:08] VITALS: BP 127/86; PULSE 76; RESP 18; TEMP 98.2
== END 2020-10-28 18:07 | disposition home or self-care (01) ==
LOC: EC 14:24
DX: J44.1 Chronic obstructive pulmonary disease with (acute) exacerbation (principal); M54.5 Low back pain; R55 Syncope and collapse; F31.9 Bipolar disorder, unspecified; F17.200 Nicotine dependence, unspecified, uncomplicated; F12.90 Cannabis use, unspecified, uncomplicated; Z79.1 Long term (current) use of non-steroidal anti-inflammatories (NSAID); Z79.52 Long term (current) use of systemic steroids; Z79.899 Other long term (current) drug therapy
CPT/HCPCS: 36415; 94640; 93005; 80053; 84484; 85025; 85610; 85730; 81001; 87086; 71275; 74177; 99285; 96374; 96375; 96361 ×2; J2270; J2930; Q9967